=== PATIENT | female | born 1960 | race African-American/Black ===

== ENCOUNTER → 2016-08-17 | Outpatient (CLI) | payer OTHER ==
[2015-11-27 14:29] VITALS: BP 141/89
[~2016-08-17] MED LIST: CYCL10TA2 PO; DULO30CA2 PO; GABA-586 PO; HYDR-2762 PO; METH4TAB2 PO; MULT-208 PO; NAPR375T3 PO
--- NOTE | 2016-08-18 08:18 | PAIN ---
DATE OF SERVICE: 08/17/2016 INITIAL CONSULTATION FOR PAIN CLINIC CHIEF COMPLAINT: Neck and left upper extremity pain. HISTORY OF PRESENT ILLNESS: This is a 56-year-old female who presents with a history of pain since the middle of May for about 3 months, increasing without any specific injury or accident that she is aware of, but came on suddenly with pain in the base of the neck, left arm, left shoulder, anterior biceps, anterior forearm into the hand with tingling, numbness in the hand and weakness in the left arm as well, the patient reports also in the back of the shoulder on the left side into the elbow and again in the posterior aspect of the hand. The patient reports it is constant, sharp, throbbing with tingling and numbness with radiation, burning into the left hand with some difficulty with holding items recently over the past month or so. The patient did have an MRI scan of the cervical spine showing C4-C5 moderate-sized broad-based left-sided subligamentous disk protrusion with the apex located just to the left of midline abutting the cervical spinal cord and slightly displacing it. The patient reports she has been doing some exercises at home on her own, stretching of her neck and shoulder, trying to keep the pain down to a minimum, but has not been significantly helpful. She has had no formal physical therapy, but is doing the exercises on her own as well as some resistive training with light weights about 2 pounds. Again, this is becoming more and more difficult with the left arm as it is becoming more and more painful and feels weak even with some cramping in the biceps and triceps with exercise. The patient has tried hydrocodone as well as Naprosyn, gabapentin, which has not been helping significantly with the pain. The patient reports her disability rating from 0-10, 10 being the worst, is a 9 with family and home responsibilities, 8 with self-care and life support activities, 10 with recreation, sexual behavior, occupation and social activity. PAST MEDICAL HISTORY: Significant for cigarette smoking 1 pack a day for 40 years, arthritis. PREVIOUS SURGERY: Included hysterectomy in 1987. CURRENT MEDICATIONS: Include gabapentin, multivitamins, Naprosyn, Cymbalta and hydrocodone. ALLERGIES: THE PATIENT IS ALLERGIC TO PAXIL. FAMILY HISTORY: Significant for high blood pressure, diabetes and cancers. 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 REVIEW OF SYSTEMS: Positive for those items mentioned in the history of present illness. All systems reviewed and otherwise negative. It is complete, full and well documented on the patient's chart. PHYSICAL EXAMINATION: VITAL SIGNS: The patient's blood pressure is 114/81, pulse 75, respirations 18, temperature is 98.6 degrees Fahrenheit, height is 5 feet 4 inches, weight is 180 pounds. GENERAL: The patient is awake, alert, oriented, appropriate, has a very pleasant demeanor. HEENT: Shows normocephalic, atraumatic. Extraocular movements are intact and symmetrical. Oral cavity shows mucous membranes moist and pink. Dentition is intact. NECK: Shows anterior throat supple without palpable lymphadenopathy noted. Swallow reflex is symmetrical. CHEST: Shows normal on inspection. Breath sounds are clear to auscultation bilaterally. HEART: Shows S1 and S2 clear. ABDOMEN: Soft, nontender, nondistended. No palpable organomegaly is noted. No rebound or guarding demonstrated. BACK: Shows spine grossly in the midline, normal-appearing cervical lordotic curvature, thoracic kyphotic curvature and lumbar lordotic curvature. No previous bruises, lesions, rashes or scars are noted throughout. MUSCULOSKELETAL: With examination of the patient's neck, the posterior cervical musculature shows symmetrical on inspection, with palpation shows some moderate tenderness with palpation, more on the left than the right in the inferior aspect of the cervical paraspinous muscles as well as the superior, medial and lateral trapezius. Right side shows some tenderness as well in the inferior cervical paraspinous muscles, but not as much in the trapezius and appears roughly symmetrical, no evidence of atrophy, hypertrophy, no radiation of pain, no trigger points. The patient shows good rotational motion of the cervical spine laterally greater than 45 degrees, closer to 90 degrees as well as full extension and full forward flexion, was somewhat guarded with extension, but not with forward flexion, but no significant increase in pain reported with these maneuvers. EXTREMITIES: The patient's upper extremities show deep tendon reflexes 2+ in the biceps and triceps tendons. Motor exam is approximately 4 on a scale of 5 with left dental equipment mechanic strength, biceps and triceps flexion and 5/5 on the right. Peripheral pulses are 2+ in the radial distribution. No peripheral edema is noted. No clubbing, no cyanosis ____. Upper extremities are warm and dry to touch, equal in color and appearance. Shoulder shrug is strong and intact without loss of strength on resistance, but pain reported in the left shoulder with resistance, abduction at 90 degrees and intact without loss of strength on resistance, but again, pain reported with resistance as well. IMPRESSION: 1. This is a 56-year-old female with approximate 3-month history of increasing pain, base of the neck, left upper extremity in a radicular fashion to the left arm and hand with numbness, tingling and increased weakness. 2. MRI scan, cervical spine as noted. 3. History of arthritis. 4. Cigarette smoking. PLAN: Options were discussed with the patient including conservative medical management, physical therapy, interventional techniques and she would like to pursue interventional techniques since she is doing exercises on her own without significant improvement. We discussed cervical epidural steroid injection using description as well as anatomical models to describe the procedure. The patient will wait for preauthorization with her insurance provider and we will have her return for cervical epidural steroid injection at that time, try Medrol Dosepak in the meantime. The patient was given instructions as well as side effects to be aware of with the medication. Follow up as scheduled. PEG SANTANA MD DR: FORREST/felipe JOB#: [id number] / [id number] DAVID Saucedo
== END | disposition home or self-care (01) ==
LOC: PNCL 09:27
PROVIDERS: ATTEND Anesthesiology
DX: M54.2 Cervicalgia (principal); M79.602 Pain in left arm
CPT/HCPCS: 99214

== ENCOUNTER → 2016-08-29 | Outpatient (CLI) | payer OTHER ==
[2015-11-27 14:29] VITALS: BP 141/89
[~2016-08-29] MED LIST changes: +BUPIVACAINE MPF 0.25% 10 ML VIAL. ONE; +IOHEXOL 180 MG/ML 10 ML VIAL. ONE; +methylPREDNISolone ACETATE 40 MG/ML VIAL. ONE; +methylPREDNISolone ACETATE 80 MG/ML VIAL. ONE
--- NOTE | 2016-08-30 01:56 | PAIN ---
DATE OF SERVICE: 08/29/2016 PROGRESS NOTE FOR PAIN CLINIC DIAGNOSES: Cervical radiculopathy with cervical degenerative disk disease and cervical herniated disk. HISTORY OF PRESENT ILLNESS: The patient is a 56-year-old female who returns for followup status post preauthorization and initial evaluation with complaints of pain in the base of the neck and left upper extremity. The patient reports the Medrol Rolf did not help decrease the pain, still has some aching, sharp tight dull and shooting pain, stabbing, tingling, burning as well as severe and constant pain in the left arm and shoulder as well as the base of the neck. The patient reports anywhere from 9-10 on a scale of 10. Reports no new motor or sensory deficits. Still has difficulty sleeping at night, but not as bad as it was. The patient reports no new motor or sensory deficits, no new complaints, still some significant numbness and weakness in the left arm as previously. PHYSICAL EXAMINATION: VITAL SIGNS: Today, the patient's blood pressure is 114/75, pulse 83, respirations are 18, temperature 98.2 degrees Fahrenheit, height is 5 feet 4 inches, weight 181 pounds. GENERAL: The patient is awake, alert, oriented, appropriate, very pleasant demeanor. HEENT: Shows normocephalic, atraumatic. Extraocular movements are intact and symmetrical. Oral cavity, mucous membranes moist and pink. Dentition is intact. NECK: Shows anterior throat supple without palpable lymphadenopathy noted. Swallow reflex is symmetrical. CHEST: Shows normal on inspection. Breath sounds clear to auscultation bilaterally. HEART: Shows S1 and S2 clear. ABDOMEN: Soft, nontender, nondistended. No palpable organomegaly, no rebound or guarding demonstrated. BACK: The patient's back shows spine grossly midline. Neck shows posterior cervical musculature with some moderate tenderness with palpation bilaterally in the paraspinous musculature. The patient shows no difficulty with extension or forward flexion. Right and left lateral rotation are somewhat more painful to the left greater than 45 degrees, but not to the right. Upper extremity showed deep tendon reflexes at 2+ in the biceps and triceps tendons. Motor exam is approximately 4 on a scale of 5 with left biceps and triceps and teacher hearing impaired strength and 5/5 on the right. Options were discussed with the patient. The patient's old chart was reviewed as her current medication regimen updated. Current review of systems updated today as well. We will proceed with a cervical epidural steroid injection today with fluoroscopic guidance. Risks were again discussed including, but not limited to bleeding, infection, possibility of epidural hematoma, subsequent neurologic compromise, dural puncture, headaches, spinal cord and/or nerve damage, side effects of steroid medication and poor results regarding pain control. The patient understands and wishes to proceed. The patient will return to clinic in approximately 2 weeks for followup, was counseled on return appointment, activity level and side effects to be aware of. DIAGNOSES: Cervical radiculopathy with cervical degenerative disk disease, cervical herniated disk. PROCEDURE: Cervical epidural steroid injection in translaminar approach at the C6-C7 level using C-arm fluoroscopic guidance under sterile prep and drape using local anesthetic. MEDICATION INJECTED: A 120 mg Depo-Medrol with 5 mL preservative-free normal saline and 2 mL of Isovue for contrast. CONDITION AT DISCHARGE: Stable. The patient tolerated the procedure well, had no complications. PEG SANTANA MD DR: FORREST/felipe JOB#: [id number] / [id number]
== END | disposition home or self-care (01) ==
LOC: PNCL 09:51
PROVIDERS: ATTEND Anesthesiology
DX: M50.123 Cervical disc disorder at C6-C7 level with radiculopathy (principal)
CPT/HCPCS: 62321; J1030; J1040

== ENCOUNTER → 2016-09-13 | Outpatient (CLI) | payer OTHER ==
[2015-11-27 14:29] VITALS: BP 141/89
[~2016-09-13] MED LIST changes: -BUPIVACAINE MPF 0.25% 10 ML VIAL. ONE; -IOHEXOL 180 MG/ML 10 ML VIAL. ONE; -methylPREDNISolone ACETATE 40 MG/ML VIAL. ONE; -methylPREDNISolone ACETATE 80 MG/ML VIAL. ONE
--- NOTE | 2016-09-13 23:52 | PAIN ---
DATE OF SERVICE: 09/13/2016 PROGRESS NOTE FOR PAIN CLINIC DIAGNOSES: Cervical radiculopathy with cervical degenerative disk disease and cervical herniated disk. HISTORY OF PRESENT ILLNESS: The patient is a 56-year-old female, who returns for followup status post cervical epidural steroid injection x 1. The patient reports initially about 50-60% improvement over the first two weeks, but now the pain is returning over the last few days essentially at the baseline at the base of the neck and left shoulder, left upper extremity, left arm with tingling and numbness in the left hand. She has been dropping items with her left hand, with repetitive motions home, rates her pain from 8-10 on a scale of 10, now a sharp shooting, tingling, burning and constant, becoming more severe pain in the left arm and hand with some occasional tingling in the right hand, but mostly on the left side. The patient has been doing some stretching exercises with her neck and shoulders, but this does not seem to be helping the pain significantly. The patient reports no new motor or sensory deficits, but still significant pain is noted radiating to the left upper extremity with some numbness in the left face noted as well. PHYSICAL EXAMINATION: VITAL SIGNS: The patient's blood pressure 110/66, pulse 79, respirations are 18, temperature 98.5 degrees Fahrenheit, height is 5 feet 4 inches, and weight is 182 pounds. GENERAL: The patient is awake, alert, oriented, appropriate, very pleasant demeanor. HEENT: Head shows normocephalic, atraumatic. Extraocular movements are intact, symmetrical. Oral cavity, mucous membranes are moist and pink. Dentition is intact. NECK: Shows anterior throat supple without palpable lymphadenopathy noted. Swallow reflex is symmetrical. CHEST: Shows normal on inspection. Breath sounds clear to auscultation bilaterally. HEART: Shows S1 and S2 clear. ABDOMEN: Soft, nontender, nondistended. No palpable organomegaly noted. No rebound or guarding demonstrated. BACK: Shows spine grossly in the midline. Cervical paraspinous musculature shows some moderate tenderness to palpation in the inferior aspect of the cervical paraspinous muscles as well as the left superior medial and lateral trapezius, but symmetrical without evidence of atrophy, hypertrophy and some moderate tenderness with palpation, but no trigger points or radiation of pain. NECK: Shows full rotational motion of cervical spine with some tenderness noted with left lateral rotation past 45 degrees as well as extension, but not with forward flexion. EXTREMITIES: Upper extremity showed deep tendon reflexes at 2+ in the biceps and triceps tendons. Motor exam is approximately 4 on a scale of 5 with left mason liner strength and 5/5 on the right. PLAN: Options were discussed with the patient. The patient's old chart was reviewed as her current medication regimen updated. Current review of systems updated today as well and we will preauthorize the patient for a second cervical epidural steroid injection. She did well initially, but now the pain significantly returning to the left upper extremity in a radicular fashion. The patient was encouraged to continue doing her strengthening and stretching exercises as tolerated. We will follow up as scheduled. PEG SANTANA MD DR: FORREST/felipe JOB#: [id number] / [id number] DAVID Saucedo
== END | disposition home or self-care (01) ==
LOC: PNCL 10:11
PROVIDERS: ATTEND Anesthesiology
DX: M50.10 Cervical disc disorder with radiculopathy, unspecified cervical region (principal); M50.20 Other cervical disc displacement, unspecified cervical region
CPT/HCPCS: 99212

== ENCOUNTER → 2016-10-08 | Outpatient (CLI) | payer OTHER ==
[2015-11-27 14:29] VITALS: BP 141/89
[~2016-10-08] MED LIST changes: +IOHEXOL 180 MG/ML 10 ML VIAL. ONE; +methylPREDNISolone ACETATE 40 MG/ML VIAL. ONE; +methylPREDNISolone ACETATE 80 MG/ML VIAL. ONE
--- NOTE | 2016-10-08 13:28 | PAIN ---
DATE OF SERVICE: 10/08/2016 PROGRESS NOTE FOR PAIN CLINIC DIAGNOSES: Cervical radiculopathy with cervical degenerative disk disease and cervical herniated disk. HISTORY OF PRESENT ILLNESS: This is a 56-year-old female, who returns for followup status post cervical epidural steroid injection x 1. The patient reports about a 20% improvement, but only limited in her pain reduction in the base of the neck, shoulders, right upper extremity, is now ____ up to the left upper extremity with some significant pain, numbness and tingling, rated as 10 on a scale of 10 at all times. Describes as aching, sharp, shooting, stabbing, burning and tingling with constant severe pain in the back and neck, shoulders and between the shoulder blades, more on the right than the left with increased fatigability in the right upper extremity as well as the left, but more noticeable on the right over the last few weeks. The patient reports no new motor or sensory deficits, but still significant pain and fatigue in the upper extremities noted. PHYSICAL EXAMINATION: VITAL SIGNS: Today, the patient's blood pressure is 126/80, pulse is 80, respirations 18, temperature 98.3 degrees Fahrenheit, height is 5 feet 4 inches, weight is 177 pounds. GENERAL: The patient is awake, alert, oriented, appropriate, very pleasant demeanor. HEENT: Head shows normocephalic, atraumatic. Extraocular movements are intact and symmetrical. Oral cavity, mucous membranes are moist and pink. Dentition is intact. NECK: Shows anterior throat supple without palpable lymphadenopathy noted. Swallow reflex is symmetrical. CHEST: Shows normal on inspection. Breath sounds clear to auscultation bilaterally. HEART: Shows S1 and S2 clear. No murmurs auscultated. ABDOMEN: Soft, nontender, nondistended. No palpable organomegaly. No rebound or guarding demonstrated. EXTREMITIES: Upper extremities show deep tendon reflexes at 2+ in the bicep and tricep tendons. Motor exam is approximately 4 on a scale of 5 with biceps and triceps as well as crocheter hand strength and is symmetrical. Right side is now less strong on levels on previous exam at the 4 on a 5 level with crocheter hand strength, biceps and triceps flexion as ____. Peripheral pulses are 2+ radial distribution. No peripheral edema is noted. No clubbing, no cyanosis. Options were discussed with the patient. The patient's old chart was reviewed as her current medication regimen updated. Current review of systems updated today as well. We will proceed with a second cervical epidural steroid injection today with fluoroscopic guidance. Risks were then discussed including, but not limited to bleeding, infection, possibility of epidural hematoma, subsequent neurologic compromise, dural puncture, headaches, spinal cord and/or nerve damage, side effects of steroid medication and poor results regarding pain control. The patient understands and wishes to proceed. The patient will return to clinic in approximately 2 weeks for followup, was counseled on return appointment, activity level and side effects to be aware of. DIAGNOSES: Cervical radiculopathy with cervical herniated disk and cervical degenerative disk disease. PROCEDURE: Cervical epidural steroid injection in translaminar approach at C6-C7 level using C-arm fluoroscopic guidance, a sterile prep and drape using local anesthetic. MEDICATIONS INJECTED: A total of 120 mg of Depo-Medrol plus 5 mL of preservative-free normal saline and 2 mL of Isovue for contrast. CONDITION AT DISCHARGE: Stable. The patient tolerated the procedure well, had no complications. PEG SANTANA MD DR: FORREST/felipe JOB#: [id number] / [id number]
== END | disposition home or self-care (01) ==
LOC: PNCL 10:33
PROVIDERS: ATTEND Anesthesiology
DX: M50.123 Cervical disc disorder at C6-C7 level with radiculopathy (principal)
CPT/HCPCS: 62321; J1030; J1040

== ENCOUNTER 2017-12-26 17:59 | Emergency (ER) | payer OTHER ==
[~2017-12-26] VITALS: Ht 162.6 cm; Wt 85.7 kg
[~2017-12-26 17:59] MED LIST changes: -IOHEXOL 180 MG/ML 10 ML VIAL. ONE; +NAPR-695 PO; -NAPR375T3 PO; -methylPREDNISolone ACETATE 40 MG/ML VIAL. ONE; -methylPREDNISolone ACETATE 80 MG/ML VIAL. ONE
[2017-12-26] MEDS ORDERED: IV NORMAL SALINE 1000ML BAG 1,000 ML IV SCH (18:23)
--- NOTE | 2017-12-26 18:28 | PHYS DOC ---
Past Medical History Past Medical History: Cancer, Fibromyalgia, Sinusitis, Other Additional Past Medical Histor: nerve pain Past Surgical History: Hysterectomy, Other Additional Past Surgical Histo: cervical cancer Additional Information: 1 PPD Alcohol Use: None Drug Use: None Adult General Chief Complaint Chief Complaint: ABDOMINAL PAIN HPI HPI Patient is a 57-year-old female who presents with complaint of upper abdominal pain that has been present for the last 3-4 days. She indicates that she has had nausea with vomiting as well as diarrhea since onset. She states that she has had intermittent problems with the upper abdominal pain over the last year and the last few days have been her latest exacerbation. Patient indicates that she still has her gallbladder. The a 10 out of 10. She states that she is not able to identify anything that makes her pain worse. She also indicates that nothing improves her pain. She denies any chest pain or shortness of breath. She also denies any urinary discomfort or fever. She indicates that she has been having some pain in her lower back in conjunction with the abdominal pain. She is not sure whether this is pain that is radiating from the abdomen or not. Review of Systems Review of Systems Constitutional: Denies fever or chills [] Respiratory: Denies cough or shortness of breath [] Cardiovascular: Denies chest pain[] GI: Complains of abdominal pain with nausea, vomiting and diarrhea. [] : Denies dysuria or hematuria [] Musculoskeletal: Admits to lower back pain[] All other systems were reviewed and found to be within normal limits, except as documented in this note. Current Medications Current Medications Current Medications Medications (Trade) Dose Ordered Sig/Blake Start Time Stop Time Status Last Admin Dose Admin Fentanyl Citrate (Fentanyl 2ml Vial) 25 mcg 1X ONCE 12/26/17 18:30 12/26/17 18:31 DC 12/26/17 18:44 25 MCG Info (CONTRAST GIVEN -- Rx MONITORING) 1 each PRN DAILY PRN 12/26/17 19:30 12/28/17 19:29 Iohexol (Omnipaque 300 Mg/ml) 75 ml 1X ONCE 12/26/17 19:30 12/26/17 19:31 DC 12/26/17 19:33 75 ML Ondansetron HCl (Zofran) 4 mg 1X ONCE 12/26/17 18:30 12/26/17 18:31 DC 12/26/17 18:43 4 MG Sodium Chloride 1,000 ml @ 1,000 mls/hr Q1H 12/26/17 18:23 12/26/17 19:22 DC 12/26/17 18:43 1,000 MLS/HR Allergies Allergies Allergies Coded Allergies Type Severity Reaction Last Updated Verified paroxetine Allergy Severe insomnia 11/27/15 Yes Physical Exam Physical Exam Constitutional: Well developed, well nourished, no acute distress, non-toxic appearance. [] HENT: Normocephalic, atraumatic, bilateral external ears normal, oropharynx moist, no oral exudates, nose normal. [] Eyes: PERRLA, EOMI, conjunctiva normal, no discharge. [] Neck: Normal range of motion, no tenderness, supple, no stridor. [] Cardiovascular:Heart rate regular rhythm, no murmur [] Lungs & Thorax: Bilateral breath sounds clear to auscultation [] Abdomen: Bowel sounds normal, soft, with mild epigastric and right upper quadrant tenderness. [] Skin: Warm, dry, no erythema, no rash. [] Extremities: No tenderness, no cyanosis, no clubbing, ROM intact, no edema. [] Neurologic: Alert and oriented X 3, normal motor function, normal sensory function, no focal deficits noted. [] Current Patient Data Vital Signs Vital Signs Date Time Temp Pulse Resp B/P (MAP) Pulse Ox O2 Delivery O2 Flow Rate FiO2 12/26/17 18:44 16 Room Air 12/26/17 18:12 99.1 70 200/108 (138) 99 99.1 Lab Values Laboratory Tests Test 12/26/17 18:26 12/26/17 19:50 White Blood Count 10.9 x10^3/uL (4.0-11.0) Red Blood Count 4.01 x10^6/uL (3.50-5.40) Hemoglobin 13.3 g/dL (12.0-15.5) Hematocrit 38.4 % (36.0-47.0) Mean Corpuscular Volume 96 fL (79-100) Mean Corpuscular Hemoglobin 33 pg (25-35) Mean Corpuscular Hemoglobin Concent 35 g/dL (31-37) Red Cell Distribution Width 14.0 % (11.5-14.5) Platelet Count 206 x10^3/uL (140-400) Neutrophils (%) (Auto) 60 % (31-73) Lymphocytes (%) (Auto) 30 % (24-48) Monocytes (%) (Auto) 7 % (0-9) Eosinophils (%) (Auto) 2 % (0-3) Basophils (%) (Auto) 1 % (0-3) Neutrophils # (Auto) 6.6 x10^3uL (1.8-7.7) Lymphocytes # (Auto) 3.3 x10^3/uL (1.0-4.8) Monocytes # (Auto) 0.8 x10^3/uL (0.0-1.1) Eosinophils # (Auto) 0.2 x10^3/uL (0.0-0.7) Basophils # (Auto) 0.1 x10^3/uL (0.0-0.2) Sodium Level 142 mmol/L (136-145) Potassium Level 4.2 mmol/L (3.5-5.1) Chloride Level 107 mmol/L (98-107) Carbon Dioxide Level 25 mmol/L (21-32) Anion Gap 10 (6-14) Blood Urea Nitrogen 18 mg/dL (7-20) Creatinine 0.7 mg/dL (0.6-1.0) Estimated GFR (Cockcroft-Gault) 104.4 BUN/Creatinine Ratio 26 (6-20) H Glucose Level 104 mg/dL (70-99) H Calcium Level 8.7 mg/dL (8.5-10.1) Total Bilirubin 0.2 mg/dL (0.2-1.0) Aspartate Amino Transferase (AST) 21 U/L (15-37) Alanine Aminotransferase (ALT) 30 U/L (14-59) Alkaline Phosphatase 109 U/L (46-116) Troponin I Quantitative < 0.017 ng/mL (0.000-0.055) Total Protein 7.2 g/dL (6.4-8.2) Albumin 3.7 g/dL (3.4-5.0) Albumin/Globulin Ratio 1.1 (1.0-1.7) Lipase 106 U/L (73-393) Urine Collection Type Unknown Urine Color Yellow Urine Clarity Clear Urine pH 6.0 Urine Specific [place] >=1.030 Urine Protein Negative mg/dL (NEG-TRACE) Urine Glucose (UA) Negative mg/dL (NEG) Urine Ketones (Stick) Negative mg/dL (NEG) Urine Blood Negative (NEG) Urine Nitrite Negative (NEG) Urine Bilirubin Negative (NEG) Urine Urobilinogen Dipstick 0.2 mg/dL (0.2 mg/dL) Urine Leukocyte Esterase Negative (NEG) Urine RBC 0 /HPF (0-2) Urine WBC Occ /HPF (0-4) Urine Squamous Epithelial Cells Mod /LPF Urine Bacteria Few /HPF (0-FEW) Urine Mucus Slight /LPF Urine Yeast Present /HPF Laboratory Tests 12/26/17 18:26 Laboratory Tests 12/26/17 18:26 EKG EKG [] Interpretation Time: EKG demonstrates a normal sinus rhythm with rate of 69. No ST segment abnormalities noted. Radiology/Procedures Radiology/Procedures [] Impressions: CT of the abdomen and pelvis demonstrates no acute process. Course & Med Decision Making Course & Med Decision Making Pertinent Labs and Imaging studies reviewed. (See chart for details) [] Dragon Disclaimer Dragon Disclaimer This electronic medical record was generated, in whole or in part, using a voice recognition dictation system. Departure Departure Impression: Primary Impression: Gastroenteritis Additional Impression: Upper abdominal pain Disposition: HOME, SELF-CARE Condition: STABLE Referrals: DAVID GUALLPA (PCP) Patient Instructions: Abdominal Pain (Nonspecific), Viral Gastroenteritis Additional Instructions: Take prescribed medications as directed and follow-up with your primary care provider in the next few days. Scripts Diphenoxylate Hcl/Atropine (LOMOTIL TABLET) 1 Each Tablet 1 TAB PO TID PRN for DIARRHEA, #15 TAB Prov: CARLOS SANTIAGO Jr. DO 12/26/17 Ondansetron Hcl (ZOFRAN) 4 Mg Tablet 4 MG PO PRN TID PRN for NAUSEA/VOMITING, #15 nausea/vomiting Prov: CARLOS SANTIAGO Jr. DO 12/26/17 Problem Qualifiers CARLOS SANTIAGO Jr. DO Dec 26, 2017 18:28
[2017-12-26] MEDS ORDERED: ONDANSETRON PF 4 MG/2 ML VIAL. IV ONE (18:30)
[2017-12-26] MEDS ORDERED: fentaNYL PF VIAL 100 MCG/2 ML VIAL IV ONE (18:30)
[2017-12-26 18:39] LABS: BASO # 0.1 x10^3/uL (0.0-0.2); BASO % 1 % (0-3); EOS # 0.2 x10^3/uL (0.0-0.7); EOS % 2 % (0-3); HEMATOCRIT 38.4 % (36.0-47.0); HEMOGLOBIN 13.3 g/dL (12.0-15.5); LYMPH # 3.3 x10^3/uL (1.0-4.8); LYMPH % 30 % (24-48); MEAN CORPUSCULAR HEMOGLOBIN 33 pg (25-35); MEAN CORPUSCULAR HGB CONC 35 g/dL (31-37); MEAN CORPUSCULAR VOLUME 96 fL (79-100); MONO # 0.8 x10^3/uL (0.0-1.1); MONO % 7 % (0-9); NEUT # 6.6 x10^3uL (1.8-7.7); NEUT % 60 % (31-73); PLATELET COUNT 206 x10^3/uL (140-400); RED BLOOD COUNT 4.01 x10^6/uL (3.50-5.40); WHITE BLOOD COUNT 10.9 x10^3/uL (4.0-11.0)
[2017-12-26 18:50] LABS: CALCIUM 8.7 mg/dL (8.5-10.1); CREATININE 0.7 mg/dL (0.6-1.0); GFR 104.4; POTASSIUM 4.2 mmol/L (3.5-5.1)
[2017-12-26 18:55] LABS: ALBUMIN 3.7 g/dL (3.4-5.0); ALBUMIN/GLOBULIN RATIO 1.1 (1.0-1.7); TOTAL BILIRUBIN 0.2 mg/dL (0.2-1.0); TOTAL PROTEIN 7.2 g/dL (6.4-8.2)
[2017-12-26] MEDS ORDERED: IOHEXOL 300 MG/ML 100ML VIAL. IV ONE (19:30)
[2017-12-26] MEDS ORDERED: CONTRAST GIVEN. MC PRN (19:30)
--- NOTE | 2017-12-26 19:50 | RAD ---
PQRS Compliance statement: One or more of the following individualized dose reduction techniques were utilized for this examination: 1. Automated exposure control. 2. Adjustment of the mA and/or kV according to patient size. 3. Use of iterative reconstruction technique. Indication:upper abd pain x 1 year, constant x 3 days, uvuk570 75ml, no priors TECHNIQUE: CT abdomen and pelvis with IV contrast with multiplanar reformats. COMPARISON: None FINDINGS: Heart is normal in size. No pericardial or pleural effusion. Clear lung bases. Liver, spleen, gallbladder, pancreas, adrenals and kidneys are within normal limits. No retroperitoneal or pelvic adenopathy. No bowel obstruction. Normal appendix. Status post hysterectomy. Urinary bladder within normal limits. No suspicious bony lesion. IMPRESSION: No acute findings. Electronically signed by: Isaac Rushing DO (12/26/2017 7:48 PM) [facility]
[2017-12-26 20:00] LABS: BILIRUBIN,URINE NEGATIVE (NEG); CLARITY,URINE CLEAR; COLOR,URINE YELLOW; NITRITE,URINE NEGATIVE (NEG); PROTEIN,URINE NEGATIVE (NEG-TRACE); UROBILINOGEN,URINE 0.2 mg/dL (0.2 mg/dL)
[2017-12-26 20:08] LABS: BACTERIA,URINE FEW /HPF (0-FEW); RBC,URINE 0 /HPF (0-2); SQUAMOUS EPITHELIAL CELL,UR MOD /LPF; WBC,URINE OCC /HPF (0-4); YEAST,URINE PRESENT /HPF
[2017-12-26] MEDS ORDERED: DIPH1TAB PO (20:30)
[2017-12-26] MEDS ORDERED: ONDA4TAB7 PO (20:30)
[2017-12-26 20:50] VITALS: BP 179/90
--- NOTE | 2017-12-27 01:40 | EKG ---
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
== END 2017-12-26 20:51 | disposition home or self-care (01) ==
LOC: ER 17:59
DX: K52.9 Noninfective gastroenteritis and colitis, unspecified (principal); M54.5 Low back pain; F17.200 Nicotine dependence, unspecified, uncomplicated; Z90.710 Acquired absence of both cervix and uterus; Z88.8 Allergy status to other drugs, medicaments and biological substances
CPT/HCPCS: 36415; 74177; 80053; 81001; 83690; 84484; 85025; 93005; 96361; 96374; 96375; 99285; J2405; J3010; J7030; Q9967

== ENCOUNTER → 2018-04-21 | Outpatient (CLI) | payer OTHER ==
[2018-03-14 10:39] VITALS: BP 133/83
[~2018-04-21] MED LIST changes: +ASPI-612 PO; +ATOR40TA59 PO; +AZIT250T6 PO; +CLOP75TA PO; +DIPH1TAB PO; +DULO60CA6 PO; -GABA-586 PO; +GABA300C18 PO; -HYDR-2762 PO; +HYDR-2765 PO; +LISI-338 PO; +METO-239 PO; +MOME13HF2 IH; +ONDA4TAB10 SL; +ONDA4TAB7 PO; +OXYC1TAB22 PO; +PREG50CA PO; +REGADENOSON 0.4 MG/5 ML DISP.SYRIN. IV ONE; +ROPI0.5T PO
--- NOTE | 2018-04-21 13:32 | RAD ---
MR#: [id number] Date of Study: 04/21/2018 Ordering Physician: MANUEL LOYOLA, Referring Physician: STEPHANIE GARCIA Tech: STEPHANIE TangMercedes, ARRT (R) (N)ZEINAB Mauricio APPROVED REPORT Test Type: Pharmacological Stress Nurse/Tech: Tristan Bonilla RN Test Indications: dyspnea on exertion Cardiac History: Cath 2018, two blockages, no intervetion, smoker Medications: See Electronic Medical Record Medical History: See Electronic Medical Record Resting ECG: SR inverted T wave Resting Heart Rate: 60 bpm Resting Blood Pressure: 146/86mmHg Pretest Chest Pain: None Nurse/Tech Notes Pt fisrt attempted a treadmill test but was unable to reach target heart rate due to hip and leg pain . Consent: The procedure was explained to the patient in lay terms. Informed consent was witnessed. James eout was entered into [facility]. History and Stress Test performed by Tristan Bonilla RN Pharm. Details Pharmacologic stress testing was performed using 0.4mg per 5ml of regadenoson given intravenously ove r 7-10 seconds. Stress Symptoms dyspnea, no chest pain POST EXERCISE Reason for Termination: Infusion complete Max HR: 102 bpm Max Blood Pressure: 128/87mmHg Blood Pressure response to exercise: Normal blood pressure response during stress. Heart Rate response to exercise: normal response Chest Pain: No. Arrhythmia: No. ST Change: No. INTERPRETATION Stress EKG Conclusion: The resting EKG shows a sinus rhythm and T-wave inversion in the anterior late ral and inferior leads. The stress EKG shows no significant changes from baseline. Abnormal baseline EKG but no EKG evidence of stressed induced ischemia. Imaging Protocol IMAGE PROTOCOL: Rest Tc-99m/stress Tc-99m 1 day Rest: Stress: Viability: Radiopharm.Tc99m [id number] Sestamibi Dose12.4mCi 32mCi Duration 17min. 13min. Img Date 04/21/2018 04/21/2018 Inj-Img Wley10lez. 60min. Rest Admin Site:IV - Right AntecubitalAdministrator:ZEINAB Mauricio Stress Admin Site: IV - Right AntecubitalAdministrator: NELLA Tang, ARRT (R)(N) STRESS DATA End Diast. Vol.93.0mlAv. Heart Rate72.0bpm LVEDV index BSA50.0mlCardiac Output0.0L/min End Syst. Vol.41.0mlCO Index BSA0.0L/min LVESV index BSA22.0mlMyocardial Meke235.0g Eject. Giyxyadh11.0% Stress Scores Regional WT0.00Summed WT7.00 Regional WM0.00Summed WM8.00 LV Perfusion The stress scans show an anterior septal defect. The rest scans show a small anterior defect. Nuclear imaging shows reversible ischemia in the anterior septal wall. Part of this region is suggest oly of an old infarct. Wall Motion Left ventricular systolic function is normal with an ejection fraction of 56%. LV Perf. Quant 17 Seg. SSS8.00 17 Seg. SRS6.00 17 Seg. SDS3.00 Stress Defect Extent (% LAD)25.60Rest Defect Extent (% LAD)5.60Rev. Defect Extent (% LAD)5.60 Stress Defect Extent (% LCX) 22.50Rest Defect Extent (% LCX)22.50Rev. Defect Extent (% LCX)0.00 Stress Defect Extent (% RCA)0.00Rest Defect Extent (% RCA)0.00Rev. Defect Extent (% RCA)0.00 Stress Defect Extent (% MANAS)15.20Rest Defect Extent (% MANAS)5.90Rev. Defect Extent (% MANAS)3.00 Conclusion 1. Baseline abnormal EKG with T-wave inversion but no EKG evidence of stressed induced ischemia. 2. Nuclear imaging shows reversible ischemia in the in the anteroseptal wall with a small region of a probable old infarct. 3. Left ventricular systolic function is intact with an ejection fraction of 56%. 4. Moderately high risk Lexiscan nuclear stress test with reversible ischemia in the anterior septal wall. Signed by : Connor Gant MD Electronically Approved : 04/21/2018 13:30:53
== END | disposition home or self-care (01) ==
LOC: NM 08:42
PROVIDERS: ATTEND Internal Medicine Cardiovascular Disease
DX: R94.31 Abnormal electrocardiogram [ECG] [EKG] (principal)
CPT/HCPCS: 78452; 93017; 96374; 96375; 96376; A9500; J2785

== ENCOUNTER → 2018-05-07 | Outpatient (CLI) | payer OTHER ==
[2018-03-14 10:39] VITALS: BP 133/83
[~2018-05-07] MED LIST changes: -REGADENOSON 0.4 MG/5 ML DISP.SYRIN. IV ONE
--- NOTE | 2018-05-08 10:23 | RAD ---
Bilateral lower extremity arterial ultrasound History: Peripheral arterial disease Findings: Multiple grayscale, color, and duplex spectral analysis sonographic images were acquired of the lower extremity arteries bilaterally. No significant stenosis is demonstrated on color images. There are triphasic waveforms bilaterally to level of the proximal posterior tibial arteries, variably biphasic and triphasic waveforms of the calf arteries bilaterally. Velocities in cm/sec: RIGHT Common femoral artery 153 Profunda femoris artery 70 Proximal SFA 117 Mid SFA 103 Distal SFA 101 Popliteal artery 95 Anterior tibial artery 102 Dorsalis pedis artery 60 Posterior tibial artery 75 proximally and 111 distally Peroneal artery 95 LEFT: Common femoral artery 143 Profunda femoris artery 48 Proximal SFA 129 Mid SFA 116 Distal SFA 68 Popliteal artery 91 Anterior tibial artery 78 Dorsalis pedis artery 57 Posterior tibial artery 92 proximally and 75 distally Peroneal artery 67 Impression: 1. No significant focal stenosis or vessel occlusion is demonstrated. Electronically signed by: Mitch Molina MD (05/08/2018 10:19 AM) [id number]
== END | disposition home or self-care (01) ==
LOC: US 12:40
PROVIDERS: ATTEND Family Medicine
DX: I73.9 Peripheral vascular disease, unspecified (principal)
CPT/HCPCS: 93925

== ENCOUNTER → 2018-08-04 | Outpatient (CLI) | payer OTHER ==
[2018-03-14 10:39] VITALS: BP 133/83
[~2018-08-04] MED LIST changes: +AMOX1TAB25 PO; +ATOR20TA PO; +ISOS30TA4 PO; +LEVO5TAB29 PO; +LORA10TA3 PO; +MELO15TA23 PO; +OXYC-411 PO; +PRAS10TA9 PO
--- NOTE | 2018-08-05 14:57 | SLEEP ---
DATE OF STUDY: 08/04/2018 HOME SLEEP STUDY ATTENDING PHYSICIAN: Manuel Rodney MD. The patient is 58 years old who weighs 178 pounds with a BMI of 30.6. The patient's [place] score was 19. The patient underwent home sleep study performed by [facility]. Total recording time was 314 minutes. During the night study, the patient had 130 obstructive apneas, no central apneas and 9 mixed apneas and 15 hypopneas. The patient's apnea hypopnea index was 29.4 per hour. Nocturnal oximetry study revealed a mean oxygen saturation of 93% with the lowest of 78%. 21 minutes were spent in oxygen saturation less than 90% and another 12 minutes with saturation less than 85%. Mean heart rate was 70 beats per minute. IMPRESSION: 1. Severe sleep apnea-hypopnea syndrome at an AHI of 29.4 per hour. 2. Nocturnal hypoxia secondary to obstructive sleep apnea. RECOMMENDATIONS: 1. The patient would benefit from in-lab CPAP titration study. 2. Once optimum CPAP pressure is achieved, then follow up in 4-6 weeks to assess compliance and to document clinical improvement. 3. Weight loss is advised. 4. Avoid SOLAR DESIGN ENGINEER depressants. 5. Caution regarding driving until symptoms of sleep apnea resolve with the use of CPAP. SHRUTHI ALANIS MD DR: RAYMUNDO/felipe JOB#: [id number] / [id number] MANUEL Bell MD
== END | disposition home or self-care (01) ==
LOC: RT 08:26
PROVIDERS: ATTEND Internal Medicine Pulmonary Disease
DX: G47.33 Obstructive sleep apnea (adult) (pediatric) (principal); R09.02 Hypoxemia
CPT/HCPCS: G0399

== ENCOUNTER 2018-09-10 01:52 | Inpatient (IN) | payer OTHER ==
[~2018-09-10] VITALS: Ht 162.6 cm; Wt 81.6 kg
[~2018-09-10 01:52] MED LIST changes: -AMOX1TAB25 PO; -ATOR20TA PO; -ISOS30TA4 PO; -LEVO5TAB29 PO; -LORA10TA3 PO; -MELO15TA23 PO; -OXYC-411 PO; -PRAS10TA9 PO
[2018-09-10] MEDS ORDERED: ASPIRIN 325 MG TABLET PO ONE (02:00)
[2018-09-10 02:12] LABS: BASO # 0.1 x10^3/uL (0.0-0.2); BASO % 1 % (0-3); EOS # 0.4 x10^3/uL (0.0-0.7); EOS % 3 % (0-3); HEMATOCRIT 38.8 % (36.0-47.0); HEMOGLOBIN 12.8 g/dL (12.0-15.5); LYMPH # 4.1 x10^3/uL (1.0-4.8); LYMPH % 35 % (24-48); MEAN CORPUSCULAR HEMOGLOBIN 32 pg (25-35); MEAN CORPUSCULAR HGB CONC 33 g/dL (31-37); MEAN CORPUSCULAR VOLUME 98 fL (79-100); MONO % 8 % (0-9); NEUT # 6.4 x10^3uL (1.8-7.7); NEUT % 53 % (31-73); PLATELET COUNT 197 x10^3/uL (140-400); RED BLOOD COUNT 3.96 x10^6/uL (3.50-5.40); RED CELL DISTRIBUTION WIDTH 13.2 % (11.5-14.5)
[2018-09-10 02:27] LABS: PROTHROMBIN TIME PATIENT 13.5 SEC (11.7-14.0)
[2018-09-10 02:30] LABS: CALCIUM 9.1 mg/dL (8.5-10.1); CREATININE 0.7 mg/dL (0.6-1.0); POTASSIUM 3.7 mmol/L (3.5-5.1)
[2018-09-10 02:36] LABS: ALBUMIN 3.8 g/dL (3.4-5.0); ALBUMIN/GLOBULIN RATIO 1.3 (1.0-1.7); MAGNESIUM 1.8 mg/dL (1.8-2.4); TOTAL BILIRUBIN 0.2 mg/dL (0.2-1.0); TOTAL PROTEIN 6.8 g/dL (6.4-8.2)
--- NOTE | 2018-09-10 03:41 | PHYS DOC ---
Past Medical History Past Medical History: Cancer, Fibromyalgia, High Cholesterol, [place], Sinusitis, Other Additional Past Medical Histor: CERVICAL CA Past Surgical History: Hysterectomy, Other Additional Past Surgical Histo: CERVICAL CA Alcohol Use: None Drug Use: None Adult General Chief Complaint Chief Complaint: CHEST PAIN-CARDIAC NATURE HPI HPI Patient is a 58 year old [f__sex] who presents with [] Review of Systems Review of Systems Constitutional: Denies fever or chills [] Eyes: Denies change in visual acuity, redness, or eye pain [] HENT: Denies nasal congestion or sore throat [] Respiratory: Denies cough or shortness of breath [] Cardiovascular: No additional information not addressed in HPI [] GI: Denies abdominal pain, nausea, vomiting, bloody stools or diarrhea [] : Denies dysuria or hematuria [] Musculoskeletal: Denies back pain or joint pain [] Integument: Denies rash or skin lesions [] Neurologic: Denies headache, focal weakness or sensory changes [] Endocrine: Denies polyuria or polydipsia [] All other systems were reviewed and found to be within normal limits, except as documented in this note. Current Medications Current Medications Current Medications Medications (Trade) Dose Ordered Sig/Blake Start Time Stop Time Status Last Admin Dose Admin Aspirin (Scar Aspirin) 325 mg 1X ONCE 09/10/18 02:00 09/10/18 02:01 DC 09/10/18 02:13 325 MG Allergies Allergies Allergies Coded Allergies Type Severity Reaction Last Updated Verified paroxetine Allergy Severe insomnia 11/27/15 Yes Physical Exam Physical Exam Constitutional: Well developed, well nourished, no acute distress, non-toxic appearance. [] HENT: Normocephalic, atraumatic, bilateral external ears normal, oropharynx moist, no oral exudates, nose normal. [] Eyes: PERRLA, EOMI, conjunctiva normal, no discharge. [] Neck: Normal range of motion, no tenderness, supple, no stridor. [] Cardiovascular:Heart rate regular rhythm, no murmur [] Lungs & Thorax: Bilateral breath sounds clear to auscultation [] Abdomen: Bowel sounds normal, soft, no tenderness, no masses, no pulsatile masses. [] Skin: Warm, dry, no erythema, no rash. [] Back: No tenderness, no CVA tenderness. [] Extremities: No tenderness, no cyanosis, no clubbing, ROM intact, no edema. [] Neurologic: Alert and oriented X 3, normal motor function, normal sensory function, no focal deficits noted. [] Psychologic: Affect normal, judgement normal, mood normal. [] Current Patient Data Vital Signs Vital Signs Date Time Temp Pulse Resp B/P (MAP) Pulse Ox O2 Delivery O2 Flow Rate FiO2 09/10/18 01:53 98.7 69 18 130/83 (99) 97 Room Air 98.7 Lab Values Laboratory Tests Test 09/10/18 02:03 White Blood Count 12.0 x10^3/uL (4.0-11.0) H Red Blood Count 3.96 x10^6/uL (3.50-5.40) Hemoglobin 12.8 g/dL (12.0-15.5) Hematocrit 38.8 % (36.0-47.0) Mean Corpuscular Volume 98 fL (79-100) Mean Corpuscular Hemoglobin 32 pg (25-35) Mean Corpuscular Hemoglobin Concent 33 g/dL (31-37) Red Cell Distribution Width 13.2 % (11.5-14.5) Platelet Count 197 x10^3/uL (140-400) Neutrophils (%) (Auto) 53 % (31-73) Lymphocytes (%) (Auto) 35 % (24-48) Monocytes (%) (Auto) 8 % (0-9) Eosinophils (%) (Auto) 3 % (0-3) Basophils (%) (Auto) 1 % (0-3) Neutrophils # (Auto) 6.4 x10^3uL (1.8-7.7) Lymphocytes # (Auto) 4.1 x10^3/uL (1.0-4.8) Monocytes # (Auto) 1.0 x10^3/uL (0.0-1.1) Eosinophils # (Auto) 0.4 x10^3/uL (0.0-0.7) Basophils # (Auto) 0.1 x10^3/uL (0.0-0.2) Prothrombin Time 13.5 SEC (11.7-14.0) Prothrombin Time INR 1.1 (0.8-1.1) Sodium Level 143 mmol/L (136-145) Potassium Level 3.7 mmol/L (3.5-5.1) Chloride Level 108 mmol/L (98-107) H Carbon Dioxide Level 26 mmol/L (21-32) Anion Gap 9 (6-14) Blood Urea Nitrogen 21 mg/dL (7-20) H Creatinine 0.7 mg/dL (0.6-1.0) Estimated GFR (Cockcroft-Gault) 104.0 BUN/Creatinine Ratio 30 (6-20) H Glucose Level 132 mg/dL (70-99) H Calcium Level 9.1 mg/dL (8.5-10.1) Magnesium Level 1.8 mg/dL (1.8-2.4) Total Bilirubin 0.2 mg/dL (0.2-1.0) Aspartate Amino Transferase (AST) 28 U/L (15-37) Alanine Aminotransferase (ALT) 31 U/L (14-59) Alkaline Phosphatase 107 U/L (46-116) Creatine Kinase 321 U/L (26-192) H Creatine Kinase MB (Mass) 1.6 ng/mL (0.0-3.6) Creatine Kinase MB Relative Index 0.5 % (0-4) Troponin I Quantitative 0.020 ng/mL (0.000-0.055) ZC-Rrx-O-Type Natriuretic Peptide 24 pg/mL (0-124) Total Protein 6.8 g/dL (6.4-8.2) Albumin 3.8 g/dL (3.4-5.0) Albumin/Globulin Ratio 1.3 (1.0-1.7) Lipase 127 U/L (73-393) Laboratory Tests 09/10/18 02:03 Laboratory Tests 09/10/18 02:03 EKG EKG @0158 NSR at 64bpm, NO ST elevation, compared to prior EKG from 03/13/18 which noted nonspecific t wave inversions from V3-V6 which are no longer evident. Radiology/Procedures Radiology/Procedures CXR 2 view (preliminary interpretation by ED physician): NO acute process Course & Med Decision Making Course & Med Decision Making Pertinent Labs and Imaging studies reviewed. (See chart for details) [] Dragon Disclaimer Dragon Disclaimer This electronic medical record was generated, in whole or in part, using a voice recognition dictation system. Departure Departure Impression: Primary Impression: Chest pain Disposition: 09 ADMITTED INPATIENT Admitting Physician: Mary Moran Condition: STABLE Referrals: DAVID GUALLPA (PCP) Problem Qualifiers Primary Impression: Chest pain Chest pain type: unspecified Qualified Codes: R07.9 - Chest pain, unspecified PUMA CHAMBERLAIN DO September 10, 2018 03:41
--- NOTE | 2018-09-10 04:10 | NUR ---
Patient admitted from ED with CP. Pt denies chest pain upon arrival to unit. Patient came to floor by herself. Tired wanted to sleep. RN completed admission assessment and admission profile. RN will continue to monitor
[2018-09-10 04:15] VITALS: BP 138/81
[2018-09-10] MEDS ORDERED: fentaNYL PF VIAL 100 MCG/2 ML VIAL IV PRN (04:15)
[2018-09-10] MEDS ORDERED: ONDANSETRON PF 4 MG/2 ML VIAL. IV PRN (04:15)
[2018-09-10] MEDS ORDERED: AMOX1TAB25 PO (04:56)
[2018-09-10] MEDS ORDERED: CYCL10TA2 PO (04:56)
[2018-09-10] MEDS ORDERED: ATOR20TA PO (04:56)
[2018-09-10] MEDS ORDERED: MELO15TA23 PO (04:56)
[2018-09-10] MEDS ORDERED: MOME13HF2 IH (04:56)
[2018-09-10] MEDS ORDERED: LEVO5TAB29 PO (04:56)
[2018-09-10] MEDS ORDERED: LORA10TA3 PO (04:56)
--- NOTE | 2018-09-10 06:55 | EKG ---
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
[2018-09-10 07:00] VITALS: BP 129/75
--- NOTE | 2018-09-10 08:13 | RAD ---
Chest, 2 views, 09/10/2018: HISTORY: Chest pain Comparison is made to a study from 03/13/2018. The heart size and pulmonary vascularity are normal. There is mild tortuosity of the thoracic aorta. No pulmonary infiltrate is seen. There is no evidence of pleural fluid. IMPRESSION: No acute cardiopulmonary abnormality is detected. Electronically signed by: Victor Hugo Plasencia MD (09/10/2018 8:10 AM) [facility]
--- NOTE | 2018-09-10 09:38 | PDOC2 ---
ZULMA OSBORN INVESTMENT ASSOCIATE 09/10/18 0938: CARDIAC CONSULT DATE OF CONSULT Date of Consult DATE: 09/10/18 TIME: 09:27 REASON FOR CONSULT Reason for Consult: Chest pain REFERRING PHYSICIAN Referring Physician: Dale SOURCE Source: Chart review, Patient HISTORY OF PRESENT ILLNESS HISTORY OF PRESENT ILLNESS This is a pleasant 58 yo female admitted for complains of chest pain. Reports no palpitations or any recent falls or injury but last night about 1 PM she started having left chest tightness and left arm tingling with nausea and some SOA. same symptoms when she had her C in 03/2018. No diaphoresis. Reports no recent changes to her activity tolerance with no TURNER and no exertional CP. She continues to comply with her medications but noncompliant with smoking cessation and CPAP use. Currently she is asymptomatic and no changes in her telemetry reading. PAST MEDICAL HISTORY Past Medical History Cardiovascular: Other (murmur), NICM, Stress induced CM Pulmonary: Other (YAEL) CENTRAL NERVOUS SYSTEM: Other (No pertinent history) GI: No pertinent hx Heme/Onc: Cancer (cervical CA) Psych: Anxiety (unmedicated) Musculoskeletal: Osteoarthritis, Other (cervical stenosis) Rheumatologic: Fibromyalgia Infectious disease: No pertinent hx ENT: No pertinent hx Renal/: No pertinent hx Endocrine: Diabetes (pre) Dermatology: No pertinent hx PAST SURGICAL HISTORY Past Surgical History Hysterectomy, [facility] FAMILY HISTORY Family History: Coronary Artery Disease SOCIAL HISTORY Smoke: <1 pack per day ALCOHOL: none Drugs: None Lives: with Family CURRENT MEDICATIONS CURRENT MEDICATIONS Current Medications Medications (Trade) Dose Ordered Sig/Blake Route PRN Reason Start Time Stop Time Status Last Admin Dose Admin Aspirin (Scar Aspirin) 325 mg 1X ONCE PO 09/10/18 02:00 09/10/18 02:01 DC 09/10/18 02:13 ALLERGIES ALLERGIES: Coded Allergies: paroxetine (Verified Allergy, Severe, insomnia, 11/27/15) ROS Review of System 14 point ROS evaluated with pertinent positives noted per HPI PHYSICAL EXAM General: Alert, Oriented X3, Cooperative, No acute distress HEENT: Atraumatic, Mucous membr. moist/pink Lungs: Clear to auscultation, Normal air movement Heart: Regular rate (SR no ectopies), Normal S1, Normal S2, No murmurs Abdomen: Soft, No tenderness Extremities: No cyanosis, No edema Skin: No breakdown, No significant lesion Neuro: Normal speech, Sensation intact Psych/Mental Status: Mental status NL, Mood NL MUSCULOSKELETAL: Osteoarthritic changes both hands VITALS VITALS Vital Signs Date Time Temp Pulse Resp B/P (MAP) Pulse Ox O2 Delivery O2 Flow Rate FiO2 09/10/18 08:21 Room Air 09/10/18 07:00 97.7 76 18 129/75 (93) 100 97.7 LABS Lab: Laboratory Tests Test 09/10/18 02:03 09/10/18 07:00 White Blood Count 12.0 x10^3/uL (4.0-11.0) Red Blood Count 3.96 x10^6/uL (3.50-5.40) Hemoglobin 12.8 g/dL (12.0-15.5) Hematocrit 38.8 % (36.0-47.0) Mean Corpuscular Volume 98 fL (79-100) Mean Corpuscular Hemoglobin 32 pg (25-35) Mean Corpuscular Hemoglobin Concent 33 g/dL (31-37) Red Cell Distribution Width 13.2 % (11.5-14.5) Platelet Count 197 x10^3/uL (140-400) Neutrophils (%) (Auto) 53 % (31-73) Lymphocytes (%) (Auto) 35 % (24-48) Monocytes (%) (Auto) 8 % (0-9) Eosinophils (%) (Auto) 3 % (0-3) Basophils (%) (Auto) 1 % (0-3) Neutrophils # (Auto) 6.4 x10^3uL (1.8-7.7) Lymphocytes # (Auto) 4.1 x10^3/uL (1.0-4.8) Monocytes # (Auto) 1.0 x10^3/uL (0.0-1.1) Eosinophils # (Auto) 0.4 x10^3/uL (0.0-0.7) Basophils # (Auto) 0.1 x10^3/uL (0.0-0.2) Prothrombin Time 13.5 SEC (11.7-14.0) Prothromb Time International Ratio 1.1 (0.8-1.1) Sodium Level 143 mmol/L (136-145) Potassium Level 3.7 mmol/L (3.5-5.1) Chloride Level 108 mmol/L (98-107) Carbon Dioxide Level 26 mmol/L (21-32) Anion Gap 9 (6-14) Blood Urea Nitrogen 21 mg/dL (7-20) Creatinine 0.7 mg/dL (0.6-1.0) Estimated GFR (Cockcroft-Gault) 104.0 BUN/Creatinine Ratio 30 (6-20) Glucose Level 132 mg/dL (70-99) Calcium Level 9.1 mg/dL (8.5-10.1) Magnesium Level 1.8 mg/dL (1.8-2.4) Total Bilirubin 0.2 mg/dL (0.2-1.0) Aspartate Amino Transf (AST/SGOT) 28 U/L (15-37) Alanine Aminotransferase (ALT/SGPT) 31 U/L (14-59) Alkaline Phosphatase 107 U/L (46-116) Creatine Kinase 321 U/L (26-192) Creatine Kinase MB (Mass) 1.6 ng/mL (0.0-3.6) Creatine Kinase MB Relative Index 0.5 % (0-4) Troponin I Quantitative 0.020 ng/mL (0.000-0.055) 0.232 ng/mL (0.000-0.055) EJ-Iwz-V-Type Natriuretic Peptide 24 pg/mL (0-124) Total Protein 6.8 g/dL (6.4-8.2) Albumin 3.8 g/dL (3.4-5.0) Albumin/Globulin Ratio 1.3 (1.0-1.7) Lipase 127 U/L (73-393) ECHOCARDIOGRAM ECHOCARDIOGRAM <Conclusion> Distal half of the LV is moderately hypokinetic with mid to distal inferoseptum and apex with severe hypokinesis. Left ventricle systolic function is low normal. The Ejection Fraction is 50%. DATE: 03/13/18 1446 STRESS TEST STRESS TEST Conclusion 1. Baseline abnormal EKG with T-wave inversion but no EKG evidence of stressed induced ischemia. 2. Nuclear imaging shows reversible ischemia in the in the anteroseptal wall with a small region of a probable old infarct. 3. Left ventricular systolic function is intact with an ejection fraction of 56%. 4. Moderately high risk Lexiscan nuclear stress test with reversible ischemia in the anterior septal wall. DATE: 04/21/18 1330 HEART CATH HEART CATH LEFT VENTRICULOGRAM: EF 55% Anterobasal: Normal. Anterolateral: Mild hypokinesis. Apical: Akinetic. Diaphragmatic: Mild hypokinesis. Posterobasal: Normal CORONARY ANGIOGRAPHY: LM is a large caliber vessel with normal angiographic appearance. LAD is a large caliber vessel with an apical 60% stenosis. Ramus is a moderate caliber vessel with normal angiographic apeparance. LCx is a moderate caliber non-dominant vessel with normal angiographic appeara nce. OM1 is a moderate caliber vessel with normal angiographic appearance. RCA is a large caliber dominant vessel with a proxmial 50% stenosis. RPDA and RPL are moderate caliber vessels with normal angiographic appearance. Conclusion 1. Two vessel coronary disease. 2. No clear culprit lesion noted, suspect stress induced CMP. Recommendations Aggressive medical therapy. 03/13/2018 18:33:50 ASSESSMENT/PLAN ASSESSMENT/PLAN 1. CP: Same features back with 03/2018 with LHC. 2. Elevated Trop peaked at 0.2.EKG with early repolarization same as 12/2017 no acute changes. Likely microvascular dysfunction, 3. Hx of NICM/stress induced CM 4. CAD: recent LHC in 03/2018 noted with moderate lesion to RCA and LAD. 5. HTN: controlled 6. HLP 7. Hx of fibromyalgia/anxiety 8. Tobaccoism Recommendations 1. TTE, lipids, obtain UDS 2. Continue with home low dose toprol lisinopril, lipitor. Will start on imdur pending BP trend 3. LHC is a consideration given her moderate CAD, awaiting EKG and TTE. Will discuss with primary pulmonologist. 4. Continue ASA and plavix. . 5. Smoking cessation. Still not using her CPAP, encouraged MANUEL LOYOLA MD 09/10/18 9398: CARDIAC CONSULT ASSESSMENT/PLAN ASSESSMENT/PLAN Patient seen and examined. Agree with above nurse practitioner note. 58-year-old woman well known to us from her previous visit coming in with chest pain that is suggestive of unstable angina. She has an elevated troponin. She does have known coronary disease. I discussed with her continued medical therapy versus repeat cardiac catheterization. She wishes to have definitive evaluation with a cardiac catheterization. Her and her family understand the risks and benefits. We will proceed with cardiac catheterization tomorrow. ZULMA OSBORN APRN September 10, 2018 09:38 MANUEL LOYOLA MD September 10, 2018 17:08
--- NOTE | 2018-09-10 09:54 | PDOC ---
Provider Note Provider Note Pt seen.H&P dictated.#[id number]. JEMAL LUDWIG MD September 10, 2018 09:54
[2018-09-10] MEDS: CYCLOBENZAPRINE 10 MG TABLET. PO SCH ×2 (10:00→12:24)
[2018-09-10 10:13] LABS: CHOLESTEROL/HDL RATIO 2.2
--- NOTE | 2018-09-10 10:19 | EKG ---
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
[2018-09-10 11:28] VITALS: BP 144/76
--- NOTE | 2018-09-10 11:31 | HP ---
ADMIT DATE: 09/10/2018 LOCATION: 210. REASON FOR ADMISSION TO THE HOSPITAL: Chest pain. The patient has a 60% lesion and two-vessel disease. HISTORY OF PRESENT ILLNESS: The patient is a 58-year-old female, patient of Dr. Cleaning, has history of fibromyalgia, had a cardiac cath six months ago, which shows two-vessel disease, 50%-60%, 50% ejection fraction. She was having chest pain, came to the Emergency Room. First EKG and troponin was negative, was admitted to the hospital. Cardiology was consulted. PAST MEDICAL HISTORY: He has history of minimal coronary artery disease, hypertension, fibromyalgia, cervical cancer. PAST SURGICAL HISTORY: He had hysterectomy, had a cardiac catheterization, had a 60% disease around six months ago. ALLERGIES: TO PAROXETINE. MEDICATIONS AT HOME: The patient is on cyclobenzaprine, Lyrica 50 mg twice a day, Flexeril 10 mg daily, Cymbalta 60 mg daily, lisinopril 2.5 mg daily, loratadine 10 mg daily, Dulera twice a day two puffs, multivitamin daily, aspirin 81 mg daily, atorvastatin 20 mg daily, metoprolol 12.5 daily. PERSONAL HISTORY: Smokes one pack. FAMILY HISTORY: Positive for CAD. REVIEW OF SYMPTOMS: CARDIAC: Denies any chest pain. GASTROINTESTINAL: No nausea or vomiting. NEUROLOGICAL: No weakness. Rest of the 14 systems was reviewed and negative. PHYSICAL EXAMINATION: GENERAL: The patient is pleasant, not in any distress. VITAL SIGNS: At the time of admission shows a temperature 98, pulse 69, respirations 18, blood pressure 130/80, 97 on room air. HEENT: Head is atraumatic. Pupils equal. Oral cavity: No congestion. NECK: Supple. Thyroid not enlarged. JVD not elevated. CHEST: Symmetrical. CARDIOVASCULAR: S1, S2. LUNGS: Clear to auscultation. ABDOMEN: Soft, bowel sounds present, no mass palpable. EXTERNAL GENITALIA: No Aquino. RECTAL: Deferred. EXTREMITIES: No calf tenderness, no edema. Pulses 1+. NEUROLOGIC: Moving all extremities. No focal deficits noted. LABORATORY DATA: Shows a white count of 12, hemoglobin 13, platelets of 197. INR 1.1. Electrolytes show sodium 143, potassium 3.7, chloride 108, bicarbonate 26, BUN 25, creatinine 0.7, glucose 132, magnesium 1.8. LFTs normal. CPK 321. Troponin 0.02, went up to 0.2. Chest x-ray was no acute abnormality. EKG negative for acute ischemia. FINAL IMPRESSION: 1. Chest pain for cardiac evaluation. Slight elevation in troponin, non-ST elevation myocardial infarction. 2. Coronary artery disease. The patient had a cardiac cath six months ago, which shows two-vessel disease, left anterior descending has a 60% stenosis in the apical region and right coronary artery is a large, dominant, has 50% stenosis. 3. Hypertension. 4. Hyperlipidemia. 5. Fibromyalgia. 6. History of cervical cancer status post hysterectomy. 7. History of smoking. PLAN: At this time, was admitted to hospital. Cardiac enzymes and EKG. Cardiology is consulted. The patient is on aspirin, beta blockers, ENEDINA inhibitors, cholesterol medicines. We will await further recommendations by Cardiology. JEMAL LUDWIG MD DR: TIFFANY/felipe JOB#: [id number] / [id number] DAVID Saucedo
--- NOTE | 2018-09-10 11:39 | NUR ---
SS following for discharge planning. SS reviewed pt chart. Pt is from home with spouse and is currently on room air. No discharge needs noted at this time. SS will continue to follow for discharge planning.
[2018-09-10] MEDS: ALBUTEROL SULFATE 2.5 MG/3 ML NEBU. NEB SCH ×3 (12:07→23:34)
[2018-09-10] MEDS: BUDESONIDE 0.5 MG/2 ML NEBU. NEB SCH ×2 (12:08→19:16)
[2018-09-10] MEDS: DULoxetine HCL 30 MG CAPSULE.DR PO SCH (12:24)
[2018-09-10] MEDS: PREGABALIN 50 MG CAPSULE PO SCH ×2 (12:26→20:04)
[2018-09-10] MEDS: METOPROLOL SUCC 24HR ER 25 MG TAB.ER.24H. PO SCH (12:27)
[2018-09-10] MEDS: MULTIVITAMIN with MINERAL TABLET. PO SCH (12:27)
[2018-09-10] MEDS: LISINOPRIL 5 MG TABLET. PO SCH (12:28)
[2018-09-10] MEDS: ISOSORBIDE MONONITRATE ER 30 MG TAB.ER.24H PO SCH (12:28)
[2018-09-10] MEDS ORDERED: CYCLOBENZAPRINE 10 MG TABLET. PO PRN (13:00)
--- NOTE | 2018-09-10 14:04 | CARD ---
MR#: [id number] Date of Study: 09/10/2018 Ordering Physician: ZULMA OSBORN, Referring Physician: JEMAL LUDWIG, Tech: Jacey Rosario APPROVED REPORT EXAM: Two-dimensional and M-mode echocardiogram with Doppler and color Doppler. Other Information Quality : FairHR: 58bpm Technically limited study due to COPD INDICATION Chest Pain RISK FACTORS Hyperlipidemia Smoking 2D DIMENSIONS RVDd2.4 (2.9-3.5cm)Left Atrium(2D)2.7 (1.6-4.0cm) IVSd1.3 (0.7-1.1cm)Aortic Root(2D)2.6 (2.0-3.7cm) LVDd4.6 (3.9-5.9cm)LVOT Diameter1.9 (1.8-2.4cm) PWd1.1 (0.7-1.1cm)LVDs3.0 (2.5-4.0cm) FS (%) 35.0 %SV62.7 ml Aortic Valve AoV Peak Elver.108.7cm/sAoV VTI23.2cm AO Peak GR.4.7mmHgLVOT Peak Elver.90.2cm/s LVOT VTI 22.48cmAO Mean GR.3mmHg CASSIE (VMAX)1.56jf8UDI (VTI)2.69cm2 Mitral Valve MV E Nsvjimbf13.8cm/sMV E Peak Gr.120mmHg MV DECEL DCQF263eyCT A Sqenoqfi96.4cm/s MV FRX30tqF/A Ratio0.9 MVA (PHT)3.45cm2 TDI E/Lateral E'7.9E/Medial E'8.9 Pulmonary Valve PV Peak Qkatcefs987.2cm/sPV Peak Grad.4mmHg Tricuspid Valve TR P. Jwxiyhrh849yl/sRAP IVNRFGPR5reGz TR Peak Gr.58quZbENME79mlNy Pulmonary Vein S1 Abfipaqn52.7cm/sD2 Sjnhthyo79.6cm/s PVa xjohyvjh885olpe LEFT VENTRICLE The left ventricle is normal size. There is mild concentric left ventricular hypertrophy. The left ve ntricular systolic function is low normal. The Ejection Fraction is 50-55%. There is mild hypokinesis in the apical septal wall. Transmitral Doppler flow pattern is Grade I-abnormal relaxation pattern. RIGHT VENTRICLE The right ventricle is normal size. There is normal right ventricular wall thickness. The right ventr icular systolic function is normal. ATRIA The left atrium size is normal. The right atrium size is normal. The interatrial septum is intact wit h no evidence for an atrial septal defect or patent foramen ovale as noted on 2-D or Doppler imaging. AORTIC VALVE The aortic valve is normal in structure and function. Doppler and Color Flow revealed no significant aortic regurgitation. There is no significant aortic valvular stenosis. MITRAL VALVE The mitral valve is normal in structure and function. There is no evidence of mitral valve prolapse. There is no mitral valve stenosis. Doppler and Color-flow revealed trace mitral regurgitation. TRICUSPID VALVE The tricuspid valve is not well visualized. Doppler and Color Flow revealed trace tricuspid regurgita tion with an estimated PAP of 25 mmHg. There is no tricuspid valve stenosis. PULMONIC VALVE The pulmonic valve is not well visualized. Doppler and Color Flow revealed trace pulmonic valvular re gurgitation. GREAT VESSELS The aortic root is normal in size. The IVC is normal in size and collapses >50% with inspiration. PERICARDIAL EFFUSION There is no evidence of significant pericardial effusion. Critical Notification Critical Value: No <Conclusion> The left ventricle is normal size. The left ventricular systolic function is low normal. The Ejection Fraction is 50-55%. There is mild hypokinesis in the apical septal wall. There is mild concentric left ventricular hypertrophy. There is no significant aortic valvular stenosis. Doppler and Color Flow revealed no significant aortic regurgitation. Doppler and Color-flow revealed trace mitral regurgitation. Doppler and Color Flow revealed trace tricuspid regurgitation with an estimated PAP of 25 mmHg. Signed by : Connor Gant MD Electronically Approved : 09/10/2018 14:04:18
[2018-09-10 14:36] LABS: BARBITURATES NEG (NEG); BENZODIAZEPINES NEG (NEG); CANNABINOIDS NEG (NEG); COCAINE NEG (NEG); METHADONE NEG (NEG); OPIATES POS (NEG); PHENCYCLIDINE NEG (NEG)
[2018-09-10 14:59] LABS: AMPHETAMINE/METHAMPHETAMINE NEG (NEG)
[2018-09-10 15:00] VITALS: BP 116/72
[2018-09-10] MEDS ORDERED: CLOP75TA PO (15:32)
[2018-09-10 19:25] VITALS: BP 119/65
[2018-09-10] MEDS ORDERED: OXYC-411 PO (20:30)
[2018-09-10] MEDS: oxyCODONE/APAP 10/325 1 TAB TABLET PO SCH (20:40)
[2018-09-10] MEDS ORDERED: NON FORMULARY ITEM (Mometasone/Formoterol (Dulera 100 Mcg/5 Mcg Inhaler) 2 PUFF) IH SCH (21:00)
[2018-09-10] MEDS ORDERED: ATORVASTATIN CALCIUM 20 MG TABLET PO SCH (21:00)
[2018-09-10 23:00] VITALS: BP 128/74
[2018-09-11] VITALS (16 sets, daily range): BP systolic 105–178; BP diastolic 57–100
[2018-09-11] MEDS: ALBUTEROL SULFATE 2.5 MG/3 ML NEBU. NEB SCH ×4 (06:00→20:08)
[2018-09-11] MEDS ORDERED: LIDOCAINE 1% PF 2 ML VIAL. ONE (07:36)
[2018-09-11] MEDS ORDERED: IOHEXOL 300 MG/ML 100ML VIAL. ONE ×2 (07:36→08:36)
[2018-09-11] MEDS ORDERED: HEPARIN for ARTERIAL LINE 1,500 ML ONE (07:36)
[2018-09-11] MEDS ORDERED: CLOPIDOGREL BISULFATE 75 MG TABLET PO SCH ×2 (08:00→09:00)
[2018-09-11] MEDS ORDERED: fentaNYL PF VIAL 100 MCG/2 ML VIAL ONE (08:05)
[2018-09-11] MEDS ORDERED: NITROGLYCERIN 200 MCG/2 ML SYRINGE FOR CATH/VASC LAB. ONE ×3 (08:05→08:45)
[2018-09-11] MEDS ORDERED: MIDAZOLAM HCL/PF 2 MG/2 ML VIAL. ONE (08:05)
[2018-09-11] MEDS ORDERED: HEPARIN for IV BOLUS 10,000 UNIT/10 ML VIAL. ONE ×2 (08:05→08:16)
[2018-09-11] MEDS ORDERED: VERAPAMIL 5 MG/2 ML VIAL. ONE (08:05)
--- NOTE | 2018-09-11 08:06 | PDOC ---
MODERATE SEDATION ASSESSMENT RISKS/ALTERNATIVES Risks/Alternatives Risks and alternatives of this type of sedation and procedure discussed with: RISK/ALTERNATIVES: Patient H & P ON CHART H & P H & P on chart and reviewed for co-morbid conditions and appropriate labs. H&P ON CHART: Yes STATUS PREG STATUS ASSESSED: N/A MEDS/ALLERGIES REVIEWED Meds/Allergies Reviewed Medications and Allergies including time and route of recently administered narcotics and sedatives. MEDS/ALLERGIES REVIEWED: Yes ASA RATING ASA RATING: II AIRWAY ASSESSMENT Airway Assessment Airway patency, oral function limitations, presence of caps, crowns, dentures, partials, and ability to extend neck assessed. AIRWAY ASSESSMENT: Yes MALLAMPATI SCORE MALLAMPATI SCORE: II PRE-SEDATION ASSESSMENT PRE-SEDATION ASSESSMENT: Yes MANUEL LOYOLA MD September 11, 2018 08:06
[2018-09-11] MEDS ORDERED: TIROFIBAN 5MG -0.9% NS 0 ML IV ONE (08:16)
[2018-09-11] MEDS ORDERED: BIVALIRUDIN 250 MG VIAL. IV ONE ×2 (08:17→08:45)
[2018-09-11] MEDS ORDERED: CONTRAST GIVEN. MC PRN (08:45)
[2018-09-11] MEDS ORDERED: NITROGLYCERIN 200 MCG/2 ML SYRINGE FOR CATH/VASC LAB. IART ONE (08:45)
[2018-09-11] MEDS ORDERED: MIDAZOLAM HCL/PF 2 MG/2 ML VIAL. IV ONE (08:45)
[2018-09-11] MEDS ORDERED: PRASUGREL 10 MG TABLET. PO ONE (08:45)
[2018-09-11] MEDS ORDERED: fentaNYL PF VIAL 100 MCG/2 ML VIAL IV ONE (08:45)
[2018-09-11] MEDS ORDERED: VERAPAMIL 5 MG/2 ML VIAL. IART ONE (08:45)
[2018-09-11] MEDS ORDERED: LIDOCAINE 1% PF 2 ML VIAL. INJ ONE (08:45)
[2018-09-11] MEDS ORDERED: HEPARIN for IV BOLUS 10,000 UNIT/10 ML VIAL. IART ONE (08:45)
[2018-09-11] MEDS ORDERED: LEVOCETIRIZINE DIHYDROCHLORIDE PO SCH (09:00)
[2018-09-11] MEDS ORDERED: IOHEXOL 350 MG/ML 100 ML VIAL. IART ONE (09:00)
--- NOTE | 2018-09-11 09:22 | CARD ---
MR#: [id number] Date of Study: 09/11/2018 Ordering Physician: ZULMA OSBORN, Referring Physician: JEMAL LUDWIG, Tech: RT Gabriela (R) MIL APPROVED REPORT Technologist: RT Gabriela (R) IML Nurse: Kimmie Schwarz R.N. Procedure(s) performed: MOD SED:46 MIN FLUORO TIME:8.4 MIN DAP:97 CONTRAST: 148ML HISTORY The patient is a 58 year-old female with a history of : coronary artery disease, tobacco history() , hypertension, dyslipidemia. INDICATION The indication(s) include : non-STEMI . CS Clinical Frailty Scale CS Clinical Frailty Scale: Managing Well Heart Failure Heart Failure: Yes If Yes, Newly Diagnosed: No If Yes, HF Type: Diastolic If Yes, NYHA Class: Class II PROCEDURE NARRATIVE INFORMED CONSENT: After explaining the risks and benefits of the procedure and alternatives, informed consent was obtained. The patient was brought electively to the cardiac catheterization lab. A timeout was performed confi rming the patient's name, date of , procedure, and site of procedure. All necessary personnel w ere wearing the appropriate protective equipment and radiation monitor devices. (See nursing notes for medications administered). ACCESS: The right wrist was sterilely prepped and draped in the usual fashion. The right wrist was infiltrat ed with 1 mL of 2% lidocaine for subcutaneous anesthesia. A 6 [place] Terumo glide sheath was inserte d into the right radial artery without difficulty. CORONARY ANGIOGRAPHY: Right and left coronary angiography was performed using a 6Fr TIG 4.0 catheter. Left ventricular en d diastolic pressure was obtained with a pigtail catheter and pullback was performed after left ventr iculography. All catheter exchanges and advancements were performed over a guidewire. FINDINGS: HEMODYNAMICS: LVEDP 20 mm Hg No gradient on LV to aortic pullback. AO: 128/78 LEFT VENTRICULOGRAM: Deferred due to known EF of 50% with apical hypokinesis on echo. CORONARY ANGIOGRAPHY: LM is a large caliber vessel with normal angiographic appearance. LAD is a large caliber vessel with mild proximal and mid irregularities of up to 30% and an apical 70 % stenosis. The LAD is hyperdominant and wraps around the apex. Ramus is a moderate caliber vessel with normal angiographic apeparance. LCx is a moderate caliber non-dominant vessel with normal angiographic appearance. OM1 is a moderate caliber vessel with normal angiographic appearance. RCA is a moderate caliber dominant vessel with normal angiographic appearance. RPDA and RPL are moderate caliber vessels with normal angiographic appearance. INTERVENTIONAL TECHNIQUE: PCI of the LAD Due to persistent chest pain, elevated biomarkers and apical LAD that supplies a moderate area of sandra cardium, it was felt that PCI would provide symptomatic benefit. Furthermore, there was mild ischemia in the apical territory on previous stress testing. Bivalirudin was used for anticoagulation. Throug h a 6Fr EBU 3.5 guide catheter, a 0.014'' Prowater wire was advanced to the apical LAD. Balloon angio plasty was performed with a Trek 2.5/12 balloon and the lesion was stented with a Xience Lo 3.0/1 5 mm JUAN LUIS. Final angiography demonstrated excellent stent expansion with PHYLLIS 3 flow. INTERVENTIONAL TECHNIQUE: iFR of the RCA Due to moderate disease in the RCA, an iFR study was performed to evaluate for ischemia. Bivalirudin was continued. Through a JR 4 guide catheter, a 0.014'' Verrata pressure wire was advanced to the dis nelda RCA after appropriate normalization and intracoronary NTG administration. iFR was measured at 0.9 5 and therefore further intervention was deferred. Final angiography revealed no evidence of guide or wire related complications. CLOSURE: At case completion the right radial sheath was removed and a Terumo radial band was applied with 13 m l of air. COMPLICATIONS: The patient tolerated the procedure well and there were no immediate complications. PHYLLIS Flow PHYLLIS Flow (Pre-Intervention): PHYLLIS-3 PHYLLIS Flow (Post-Intervention): PHYLLIS-3 Conclusion 1. Acute on chronic diastolic HF, LVEDP 20 mm Hg 2. Two vessel coronary disease. 3. Successful PCI of the apical LAD with implantation of a Xience Lo 3.0/15 JUAN LUIS 4. Negative iFR of the RCA Recommendations ASA 81mg daily Prasugrel 10mg daily for 1 full year if tolerated High dose statin therapy and smoking cessation. Cardiac rehab referral. Signed by : Samuel Trujillo, Electronically Approved : 09/11/2018 09:21:56
--- NOTE | 2018-09-11 09:42 | PDOC ---
PROGRESS NOTES Subjective Subjective Just back from cardiac lab Objective Objective Vital Signs Date Time Temp Pulse Resp B/P (MAP) Pulse Ox O2 Delivery O2 Flow Rate FiO2 09/11/18 09:00 63 17 Room Air 09/11/18 08:55 98 09/11/18 07:00 97.7 131/71 (91) 97.7 Intake and Output 09/11/18 07:00 Intake Total 240 ml Output Total 2200 ml Balance -1960 ml Intake Other 240 ml Output Urine Total 2200 ml Physical Exam Abdomen: Soft, No tenderness Heart: Regular rate (SR no ectopies), Normal S1, Normal S2, No murmurs Extremities: No cyanosis, No edema General: Alert, Oriented X3, Cooperative, No acute distress HEENT: Atraumatic, Mucous membr. moist/pink Lungs: Clear to auscultation, Normal air movement MUSCULOSKELETAL: Osteoarthritic changes both hands Neuro: Normal speech, Sensation intact Psych/Mental Status: Mental status NL, Mood NL Skin: No breakdown, No significant lesion Diagnosis Problem List Problems Medical Problems: (1) Chest pain Status: Acute Assessment Assessment Problems Medical Problems: (1) Chest pain Status: Acute FINAL IMPRESSION: 1. Chest pain for cardiac evaluation. Slight elevation in troponin, non-ST elevation myocardial infarction. 2. Coronary artery disease. The patient had a cardiac cath six months ago, which shows two-vessel disease, left anterior descending has a 60% stenosis in the apical region and right coronary artery is a large, dominant, has 50%stenosis. 3. Hypertension. 4. Hyperlipidemia. 5. Fibromyalgia. 6. History of cervical cancer status post hysterectomy. 7. History of smoking. PLAN: Cardiac cath placement of stent JUAN LUIS in distal LAD. lab s reviewed. troponin trending down At this time, was admitted to hospital. Cardiac enzymes and EKG. Cardiology is consulted. The patient is on aspirin, beta blockers, ENEDINA inhibitors, cholesterol medicines. We will await further recommendations by Cardiology. Plan Plan of Care Problems Medical Problems: (1) Chest pain Status: Acute Comment Review of Relevant I have reviewed the following items shimon (where applicable) has been applied. Labs Laboratory Tests Test 09/10/18 10:03 09/10/18 13:46 Troponin I Quantitative 0.196 ng/mL (0.000-0.055) Urine Opiates Screen Pos (NEG) Urine Methadone Screen Neg (NEG) Urine Barbiturates Neg (NEG) Urine Phencyclidine Screen Neg (NEG) Urine Amphetamine/Methamphetamine Neg (NEG) Urine Benzodiazepines Screen Neg (NEG) Urine Cocaine Screen Neg (NEG) Urine Cannabinoids Screen Neg (NEG) Urine Ethyl Alcohol Neg (NEG) Medications Current Medications Albuterol Sulfate (Ventolin Neb Soln) 2.5 mg Q6HRS NEB Last administered on 09/10/18at 19:14; Start 09/10/18 at 12:00 Aspirin (Ecotrin) 81 mg DAILYWBKFT PO ; Start 09/11/18 at 08:00 Atorvastatin Calcium (Lipitor) 20 mg QHS PO Last administered on 09/10/18at 20:03; Start 09/10/18 at 21:00 Bivalirudin (Angiomax) 250 mg 1X ONCE IV Last administered on 09/11/18at 08:54; Start 09/11/18 at 08:45; Stop 09/11/18 at 08:46; Status DC Bivalirudin (Angiomax) 250 mg STK-MED ONCE IV ; Start 09/11/18 at 08:17; Stop 09/11/18 at 08:18; Status DC Budesonide (Pulmicort) 0.5 mg RTBID NEB Last administered on 09/10/18at 19:16; Start 09/10/18 at 11:00 Cetirizine HCl (ZyrTEC) 10 mg QHS PO ; Start 09/11/18 at 21:00 Clopidogrel Bisulfate (Plavix) 75 mg DAILY PO ; Start 09/11/18 at 09:00; Status UNV Clopidogrel Bisulfate (Plavix) 75 mg DAILYWBKFT PO ; Start 09/11/18 at 08:00 Cyclobenzaprine HCl (Flexeril) 10 mg DAILY PO ; Start 09/10/18 at 10:00; Stop 09/10/18 at 12:41; Status DC Cyclobenzaprine HCl (Flexeril) 10 mg PRN DAILY PRN PO MUSCLE SPASMS; Start 09/10/18 at 13:00 Duloxetine HCl (Cymbalta) 60 mg DAILY PO Last administered on 09/10/18at 12:24; Start 09/10/18 at 10:00 Fentanyl Citrate (Fentanyl 2ml Vial) 100 mcg 1X ONCE IV Last administered on 09/11/18at 08:55; Start 09/11/18 at 08:45; Stop 09/11/18 at 08:46; Status DC Fentanyl Citrate (Fentanyl 2ml Vial) 100 mcg STK-MED ONCE .ROUTE ; Start 09/11/18 at 08:05; Stop 09/11/18 at 08:06; Status DC Heparin Sodium (Porcine) (Heparin Sodium) 2,500 unit 1X ONCE IART Last administered on 09/11/18at 08:55; Start 09/11/18 at 08:45; Stop 09/11/18 at 08:46; Status DC Heparin Sodium (Porcine) (Heparin Sodium) 10,000 unit STK-MED ONCE .ROUTE ; Start 09/11/18 at 08:05; Stop 09/11/18 at 08:06; Status DC Heparin Sodium (Porcine) (Heparin Sodium) 10,000 unit STK-MED ONCE .ROUTE ; Start 09/11/18 at 08:16; Stop 09/11/18 at 08:17; Status DC Heparin Sodium/ Sodium Chloride 1,500 ml @ As Directed STK-MED ONCE .ROUTE ; Start 09/11/18 at 07:36; Stop 09/11/18 at 07:37; Status DC Heparin Sodium/ Sodium Chloride (HEPARIN for ARTERIAL LINE FLUSH) 1,000 unit 1X ONCE IART Last administered on 09/11/18at 08:54; Start 09/11/18 at 08:45; Stop 09/11/18 at 08:46; Status DC Info (CONTRAST GIVEN -- Rx MONITORING) 1 each PRN DAILY PRN MC SEE COMMENTS; Start 09/11/18 at 08:45; Stop 09/13/18 at 08:44 Iohexol (Omnipaque 300 Mg/ml) 100 ml STK-MED ONCE .ROUTE ; Start 09/11/18 at 07:36; Stop 09/11/18 at 07:37; Status DC Iohexol (Omnipaque 300 Mg/ml) 100 ml STK-MED ONCE .ROUTE ; Start 09/11/18 at 08:36; Stop 09/11/18 at 08:37; Status DC Iohexol (Omnipaque 350 Mg/ml) 143 ml 1X ONCE IART ; Start 09/11/18 at 09:00; Stop 09/11/18 at 09:01; Status DC Isosorbide Mononitrate (Imdur) 30 mg DAILY PO Last administered on 09/10/18at 12:28; Start 09/10/18 at 12:00 Lidocaine HCl (Xylocaine-Mpf 1% 2ml Vial) 2 ml 1X ONCE INJ Last administered on 09/11/18at 08:56; Start 09/11/18 at 08:45; Stop 09/11/18 at 08:46; Status DC Lidocaine HCl (Xylocaine-Mpf 1% 2ml Vial) 2 ml STK-MED ONCE .ROUTE ; Start 09/11/18 at 07:36; Stop 09/11/18 at 07:37; Status DC Lisinopril (Prinivil) 2.5 mg DAILY PO Last administered on 09/10/18at 12:28; Start 09/10/18 at 10:00 Metoprolol Succinate (Toprol Xl) 12.5 mg DAILY PO Last administered on 09/10/18at 12:27; Start 09/10/18 at 10:00 Midazolam HCl (Versed) 2 mg 1X ONCE IV Last administered on 09/11/18 08:56; Start 09/11/18 at 08:45; Stop 09/11/18 at 08:46; Status DC Midazolam HCl (Versed) 2 mg STK-MED ONCE .ROUTE ; Start 09/11/18 at 08:05; Stop 09/11/18 at 08:06; Status DC Multivitamins (Thera M Plus) 1 tab DAILY PO Last administered on 09/10/18at 12:27; Start 09/10/18 at 10:00 Nitroglycerin (Nitroglycerin) 200 mcg STK-MED ONCE .ROUTE ; Start 09/11/18 at 08:05; Stop 09/11/18 at 08:06; Status DC Nitroglycerin (Nitroglycerin) 200 mcg STK-MED ONCE .ROUTE ; Start 09/11/18 at 08:37; Stop 09/11/18 at 08:38; Status DC Nitroglycerin (Nitroglycerin) 200 mcg STK-MED ONCE .ROUTE ; Start 09/11/18 at 08:45; Stop 09/11/18 at 08:46; Status DC Nitroglycerin (Nitroglycerin) 400 mcg 1X ONCE IART Last administered on 09/11/18at 08:56; Start 09/11/18 at 08:45; Stop 09/11/18 at 08:46; Status DC Non-Formulary Medication (Levocetirizine Dihydrochloride (Xyzal)) 1 tab DAILY PO ; Start 09/11/18 at 09:00; Status UNV Non-Formulary Medication (Mometasone/ Formoterol (Dulera 100 Mcg/5 Mcg Inhaler)) 2 puff BID IH ; Start 09/10/18 at 21:00; Status UNV Oxycodone/ Acetaminophen (Percocet 10/325) 1 tab HS PO Last administered on 09/10/18at 20:40; Start 09/10/18 at 21:00 Prasugrel (Effient) 60 mg 1X ONCE PO Last administered on 09/11/18at 08:57; Start 09/11/18 at 08:45; Stop 09/11/18 at 08:46; Status DC Pregabalin (Lyrica) 50 mg BID PO Last administered on 09/10/18at 20:04; Start 09/10/18 at 10:00 Tirofiban/Sodium Chloride 0 ml @ As Directed STK-MED ONCE IV ; Start 09/11/18 at 08:16; Stop 09/11/18 at 08:17; Status DC Verapamil HCl (Verapamil) 2.5 mg 1X ONCE IART Last administered on 09/11/18at 08:57; Start 09/11/18 at 08:45; Stop 09/11/18 at 08:46; Status DC Verapamil HCl (Verapamil) 5 mg STK-MED ONCE .ROUTE ; Start 09/11/18 at 08:05; Stop 09/11/18 at 08:06; Status DC Vitals/I & O Vital Sign - Last 24 Hours 09/10/18 09/10/18 09/10/18 09/10/18 11:28 12:11 12:27 12:28 Temp 98.2 98.2 Pulse 63 63 63 Resp 18 B/P (MAP) 144/76 (98) 144/76 144/76 Pulse Ox 100 98 O2 Delivery Room Air Room Air 09/10/18 09/10/18 09/10/18 09/10/18 12:28 15:00 19:16 19:25 Temp 98.2 98.6 98.2 98.6 Pulse 63 60 71 Resp 18 17 B/P (MAP) 144/76 116/72 (87) 119/65 (83) Pulse Ox 98 100 98 O2 Delivery Room Air Room Air Room Air 09/10/18 09/10/18 09/10/18 09/10/18 20:00 20:40 21:40 23:00 Temp 98.0 98.0 Pulse 67 Resp 18 18 B/P (MAP) 128/74 (92) Pulse Ox 98 98 95 O2 Delivery Room Air Room Air Room Air Room Air 09/11/18 09/11/18 09/11/18 09/11/18 03:02 07:00 08:55 08:57 Temp 98.3 97.7 98.3 97.7 Pulse 72 65 69 Resp 16 14 B/P (MAP) 105/58 (74) 131/71 (91) Pulse Ox 97 97 98 O2 Delivery Room Air Room Air Room Air 09/11/18 09:00 Pulse 63 Resp 17 O2 Delivery Room Air Intake and Output 09/10/18 09/10/18 09/11/18 15:00 23:00 07:00 Intake Total 240 ml Output Total 600 ml 1100 ml 500 ml Balance -600 ml -860 ml -500 ml JEMAL LUDWIG MD September 11, 2018 09:42
[2018-09-11] MEDS: METOPROLOL SUCC 24HR ER 25 MG TAB.ER.24H. PO SCH (09:46)
[2018-09-11] MEDS: ASPIRIN ENTERIC COATED 81 MG TABLET.DR. PO SCH (09:46)
[2018-09-11] MEDS: MULTIVITAMIN with MINERAL TABLET. PO SCH (09:46)
[2018-09-11] MEDS: PREGABALIN 50 MG CAPSULE PO SCH ×2 (09:47→20:42)
[2018-09-11] MEDS: DULoxetine HCL 30 MG CAPSULE.DR PO SCH (09:47)
[2018-09-11] MEDS: ISOSORBIDE MONONITRATE ER 30 MG TAB.ER.24H PO SCH (09:47)
[2018-09-11] MEDS: LISINOPRIL 5 MG TABLET. PO SCH (09:48)
[2018-09-11] MEDS ORDERED: HYDROcodone/APAP 10/325 1 TAB TABLET PO PRN (11:45)
[2018-09-11] MEDS: BUDESONIDE 0.5 MG/2 ML NEBU. NEB SCH ×2 (12:14→20:08)
[2018-09-11] MEDS: oxyCODONE/APAP 10/325 1 TAB TABLET PO SCH (20:44)
[2018-09-11] MEDS ORDERED: CETIRIZINE HCL 10 MG TABLET. PO SCH (21:00)
[2018-09-11] MEDS ORDERED: ATORVASTATIN CALCIUM 20 MG TABLET PO SCH (21:00)
[2018-09-12 03:17] VITALS: BP 109/55
[2018-09-12 07:00] VITALS: BP 122/69
[2018-09-12] MEDS ORDERED: PRASUGREL 10 MG TABLET. PO SCH (08:00)
[2018-09-12] MEDS: ASPIRIN ENTERIC COATED 81 MG TABLET.DR. PO SCH (08:30)
[2018-09-12] MEDS: MULTIVITAMIN with MINERAL TABLET. PO SCH (08:30)
[2018-09-12] MEDS: PREGABALIN 50 MG CAPSULE PO SCH (08:30)
[2018-09-12] MEDS: METOPROLOL SUCC 24HR ER 25 MG TAB.ER.24H. PO SCH (08:30)
[2018-09-12] MEDS: DULoxetine HCL 30 MG CAPSULE.DR PO SCH (08:30)
[2018-09-12 08:31] VITALS: BP 122/69
[2018-09-12] MEDS: ISOSORBIDE MONONITRATE ER 30 MG TAB.ER.24H PO SCH (08:31)
[2018-09-12] MEDS: LISINOPRIL 5 MG TABLET. PO SCH (08:31)
[2018-09-12] MEDS: ALBUTEROL SULFATE 2.5 MG/3 ML NEBU. NEB SCH (08:55)
[2018-09-12] MEDS: BUDESONIDE 0.5 MG/2 ML NEBU. NEB SCH (08:55)
--- NOTE | 2018-09-12 09:14 | PDOC ---
PROGRESS NOTES Subjective Subjective feels better today ,no chest pain Objective Objective Vital Signs Date Time Temp Pulse Resp B/P (MAP) Pulse Ox O2 Delivery O2 Flow Rate FiO2 09/12/18 08:58 99 Room Air 09/12/18 08:31 71 122/69 09/12/18 07:00 98.0 16 98.0 Intake and Output 09/12/18 07:00 Intake Total 1020 ml Output Total 2450 ml Balance -1430 ml Intake Oral 1020 ml Output Urine Total 2450 ml # Voids 1 Physical Exam Abdomen: Soft, No tenderness Heart: Regular rate (SR no ectopies), Normal S1, Normal S2, No murmurs Extremities: No cyanosis, No edema General: Alert, Oriented X3, Cooperative, No acute distress HEENT: Atraumatic, Mucous membr. moist/pink Lungs: Clear to auscultation, Normal air movement MUSCULOSKELETAL: Osteoarthritic changes both hands Neuro: Normal speech, Sensation intact Psych/Mental Status: Mental status NL, Mood NL Skin: No breakdown, No significant lesion Diagnosis Problem List Problems Medical Problems: (1) Chest pain Status: Acute Assessment Assessment Problems Medical Problems: (1) Chest pain Status: Acute FINAL IMPRESSION:Non Stemi 1. Chest pain for cardiac evaluation. Slight elevation in troponin, non-ST elevation myocardial infarction. 2. Coronary artery disease. The patient had a cardiac cath six months ago, which shows two-vessel disease, left anterior descending has a 60% stenosis in the apical region and right coronary artery is a large, dominant, has 50%st enosis. 3. Hypertension. 4. Hyperlipidemia. 5. Fibromyalgia. 6. History of cervical cancer status post hysterectomy. 7. History of smoking. PLAN: s/p stent placement ,doing well d/c home today on Effient 10 mg +81 mg asa Cardiac cath placement of stent JUAN LUIS in distal LAD. lab s reviewed.chol good troponin trending down At this time, was admitted to hospital. Cardiac enzymes and EKG. Cardiology is consulted. The patient is on aspirin, beta blockers, ENEDINA inhibitors, cholesterol medicines. We will await further recommendations by Cardiology. Plan Plan of Care Problems Medical Problems: (1) Chest pain Status: Acute Comment Review of Relevant I have reviewed the following items shimon (where applicable) has been applied. Medications Current Medications Acetaminophen/ Hydrocodone Bitart (Lortab 10/325) 1 tab PRN Q6HRS PRN PO PAIN Last administered on 09/11/18 12:32; Start 09/11/18 at 11:45 Albuterol Sulfate (Ventolin Neb Soln) 2.5 mg RTQID NEB Last administered on 09/12/18at 08:55; Start 09/11/18 at 16:00 Atorvastatin Calcium (Lipitor) 40 mg QHS PO Last administered on 09/11/18 20:43; Start 09/11/18 at 21:00 Cetirizine HCl (ZyrTEC) 10 mg QHS PO Last administered on 09/11/18 20:43; Start 09/11/18 at 21:00 Prasugrel (Effient) 10 mg DAILYWBKFT PO Last administered on 09/12/18 08:30; Start 09/12/18 at 08:00 Vitals/I & O Vital Sign - Last 24 Hours 09/11/18 09/11/18 09/11/18 09/11/18 09:25 09:40 09:46 09:47 Pulse 58 57 61 61 B/P (MAP) 147/85 (105) 138/75 (96) 138/75 138/75 09/11/18 09/11/18 09/11/18 09/11/18 09:48 09:55 10:10 10:40 Pulse 61 71 57 60 B/P (MAP) 138/75 141/98 (112) 147/94 (111) 148/75 (99) 09/11/18 09/11/18 09/11/18 09/11/18 11:00 11:10 12:10 12:14 Temp 98.0 98.0 Pulse 65 64 74 Resp 16 B/P (MAP) 148/100 (116) 148/100 (116) 118/76 (90) Pulse Ox 100 99 O2 Delivery Room Air Room Air 09/11/18 09/11/18 09/11/18 09/11/18 12:32 13:10 15:00 16:16 Temp 98.4 98.4 Pulse 83 71 Resp 16 B/P (MAP) 133/65 (87) 106/57 (73) Pulse Ox 96 98 O2 Delivery Room Air Room Air Room Air 09/11/18 09/11/18 09/11/18 09/11/18 19:58 20:08 20:09 20:44 Temp 98.7 98.7 Pulse 70 Resp 16 18 B/P (MAP) 121/66 (84) Pulse Ox 98 98 O2 Delivery Room Air Room Air Room Air Room Air 09/11/18 09/11/18 09/12/18 09/12/18 21:44 23:09 03:17 07:00 Temp 98.0 98.2 98.0 98.0 98.2 98.0 Pulse 69 70 71 Resp 18 16 16 16 B/P (MAP) 136/69 (91) 109/55 (73) 122/69 (86) Pulse Ox 98 98 96 93 O2 Delivery Room Air Room Air Room Air Room Air 09/12/18 09/12/18 09/12/18 09/12/18 08:00 08:30 08:31 08:31 Pulse 71 71 71 B/P (MAP) 122/69 122/69 122/69 O2 Delivery Room Air 09/12/18 08:58 Pulse Ox 99 O2 Delivery Room Air Intake and Output 09/11/18 09/11/18 09/12/18 15:00 23:00 07:00 Intake Total 480 ml 540 ml Output Total 950 ml 700 ml 800 ml Balance -950 ml -220 ml -260 ml JEMAL LUDWIG MD September 12, 2018 09:14
[2018-09-12] MEDS ORDERED: ISOS30TA4 PO (09:20)
[2018-09-12] MEDS ORDERED: PRAS10TA9 PO (09:20)
--- NOTE | 2018-09-12 09:33 | PDOC ---
Provider Note Provider Note Discharge summary dictated.#[id number] JEMAL LUDWIG MD September 12, 2018 09:33
--- NOTE | 2018-09-12 10:49 | PDOC ---
CARDIO Progress Notes Date and Time Date of Service 09/12/2018 Time of Evaluation 1030 Subjective Subjective: No Chest Pain, No shortness of breath, No Palpitations Vitals Vitals Vital Signs Date Time Temp Pulse Resp B/P (MAP) Pulse Ox O2 Delivery O2 Flow Rate FiO2 09/12/18 08:58 99 Room Air 09/12/18 08:31 71 122/69 09/12/18 07:00 98.0 16 98.0 Weight Weight [ ] Input and Output Intake and Output Intake and Output 09/12/18 07:00 Intake Total 1020 ml Output Total 2450 ml Balance -1430 ml Intake Oral 1020 ml Output Urine Total 2450 ml # Voids 1 Physical Exam HEENT: Neck Supple W Full Motion Chest: Symmetric LUNGS: Clear to Auscultation Heart: S1S2, RRR (SR) Abdomen: Soft N/T Extremities: No Calf Tenderness Neurology: alert, oriented, follow commands Other Exams right wrist arteriotomy site intact. no erythema or swelling, neurovascular status to right hand intact. Assessment Assessment 1. NSTEMI: S/P PCI/JUAN LUIS to LAD. 2VD 2. Hx of NICM/stress induced CM: EF at 50-55% 3. CAD 5. HTN: controlled 6. HLP 7. Hx of fibromyalgia/anxiety 8. Tobaccoism 9. Acute on chronic diastolic CHF: compensated Recommendations 1. Secondary prevention measures. ASA/effient 2. Continue with home low dose toprol lisinopril, lipitor and add imdur 3. Smoking cessation. Still not using her CPAP, encouraged ZULMA OSBORN APRN September 12, 2018 10:48
--- NOTE | 2018-09-12 11:02 | NUR ---
Discharge Note: RAZ GARCIAS Discharge instructions and discharge home medications reviewed with Patient and a copy given. All questions have been answered and understanding verbalized.
--- NOTE | 2018-09-12 16:04 | DS ---
DATE OF DISCHARGE: 09/12/2018 ATTENDING PHYSICIAN: Dr. Ludwig. PRIMARY PHYSICIAN: Dr. Cleaning. REASON FOR ADMISSION TO THE HOSPITAL: Chest pain, non-STEMI. CONSULTATION: Dr. Trujillo. PROCEDURES DONE: 1. Echocardiogram. 2. Cardiac catheterization, placement of stent in distal LAD. HOSPITAL COURSE: The patient is a 58-year-old female with history of hypertension, hyperlipidemia. She is already on Plavix and aspirin. She had a cardiac catheterization last year, shows 60% stenosis, 2-vessel disease. Medically treated. She was having chest pain, came to the Emergency Room. Her troponin peaked up to 0.2. The patient was taken to cardiac cath and had a stent placed in distal LAD, which was 70% stenosis and the patient was feeling better. She was discharged on Effient 10 mg daily plus aspirin 81 mg daily. FINAL DIAGNOSES: 1. Non-ST elevation myocardial infarction. 2. Had a successful stent placement, drug-eluting stent, to distal left anterior descending. 3. Hypertension. 4. Hyperlipidemia. DISPOSITION: Home. DISCHARGE MEDICATIONS: See MRAD for discharge medications. LABORATORY DATA: The patient's cholesterol is 110, LDL is only 49. JEMAL LUDWIG MD DR: TIFFANY/felipe JOB#: [id number] / [id number] DAVID Saucedo
== END 2018-09-12 11:04 | disposition home or self-care (01) | DRG 246 ==
LOC: ER 01:52 → 2 NORTH 02:47
PROVIDERS: ADMIT Internal Medicine; ATTEND Internal Medicine
PROC: 027034Z Dilation of Coronary Artery, One Artery with Drug-eluting Intraluminal Device, Percutaneous Approach (ICD-10-PCS; principal; 2018-09-11)
PROC: 4A023N7 Measurement of Cardiac Sampling and Pressure, Left Heart, Percutaneous Approach (ICD-10-PCS; 2018-09-11)
PROC: B2111ZZ Fluoroscopy of Multiple Coronary Arteries using Low Osmolar Contrast (ICD-10-PCS; 2018-09-11)
PROC: 4A033BC Measurement of Arterial Pressure, Coronary, Percutaneous Approach (ICD-10-PCS; 2018-09-11)
DX: I21.4 Non-ST elevation (NSTEMI) myocardial infarction (principal); I50.33 Acute on chronic diastolic (congestive) heart failure; I42.9 Cardiomyopathy, unspecified; M79.7 Fibromyalgia; E78.00 Pure hypercholesterolemia, unspecified; I25.10 Atherosclerotic heart disease of native coronary artery without angina pectoris; E78.5 Hyperlipidemia, unspecified; F41.9 Anxiety disorder, unspecified; M19.90 Unspecified osteoarthritis, unspecified site; M48.02 Spinal stenosis, cervical region; I11.0 Hypertensive heart disease with heart failure; G47.33 Obstructive sleep apnea (adult) (pediatric); F17.210 Nicotine dependence, cigarettes, uncomplicated; I25.2 Old myocardial infarction; Z85.41 Personal history of malignant neoplasm of cervix uteri; Z90.710 Acquired absence of both cervix and uterus; Z88.8 Allergy status to other drugs, medicaments and biological substances; Z82.49 Family history of ischemic heart disease and other diseases of the circulatory system; Z79.82 Long term (current) use of aspirin; Z79.02 Long term (current) use of antithrombotics/antiplatelets; Z91.19 Patient's noncompliance with other medical treatment and regimen
CPT/HCPCS: 36415; 71046; 80053; 80061; 80307; 82553; 83690; 83735; 83880; 84484; 85025; 85610; 92928; 93005; 93306; 93458; 93571; 94640; 94760; 99152; 99153; 99406; C1713; C1725; C1769; C1887; C1892; J0583; J1644; J2250; J3010; J3490; J7613; J7626; 99285-25

== ENCOUNTER → 2019-04-14 | Outpatient (CLI) | payer OTHER ==
[2018-10-21 21:42] VITALS: BP 142/92
[~2019-04-14] MED LIST changes: +AMOX1TAB25 PO; +ATOR20TA PO; +ISOS30TA4 PO; +LEVO5TAB29 PO; +LORA10TA3 PO; +MELO15TA23 PO; +OXYC-411 PO; +PRAS10TA9 PO
[2019-04-14 13:38] LABS: CHOLESTEROL/HDL RATIO 2.9
== END | disposition home or self-care (01) ==
LOC: LAB 12:51
PROVIDERS: ATTEND Internal Medicine Cardiovascular Disease
DX: I25.10 Atherosclerotic heart disease of native coronary artery without angina pectoris (principal)
CPT/HCPCS: 36415; 80061; 83721

== ENCOUNTER → 2019-05-19 | Outpatient (CLI) | payer OTHER ==
[2018-10-21 21:42] VITALS: BP 142/92
--- NOTE | 2019-05-19 16:53 | RAD ---
DUPLEX LOWER EXTREMITY BILAT 05/19/2019 4:00 PM Clinical Information: Bilateral leg pain and swelling. Comparison: None. Technique: Multiple grayscale, color Doppler, and spectral Doppler sonographic images of the lower extremity arterial structures were obtained. Findings: Right: Triphasic waveforms identified throughout the right lower extremity with exception of monophasic waveforms in the deep femoral artery and monophasic waveform in the dorsalis pedis artery. Common femoral artery: 159 cm/s Profunda artery: 58 cm/s Superficial femoral artery, proximal: 101 cm/s Superficial femoral artery, mid: 111 cm/s Superficial femoral artery, distal: 114 cm/s Popliteal artery: 99 cm/s Posterior tibial artery: 90-97 cm/s Anterior tibial artery: 67 cm/s Peroneal artery: Not visualized Dorsalis pedis artery: 62 cm/s Left: Triphasic waveforms identified throughout the left lower extremity with exception of monophasic waveform in the deep femoral artery. Common femoral artery: 129 cm/s Profunda artery: 631 cm/s Superficial femoral artery, proximal: 61 cm/s Superficial femoral artery, mid: 7 cm/s Superficial femoral artery, distal: 7 cm/s Popliteal artery: 131 cm/s Posterior tibial artery: 112-119 cm/s Anterior tibial artery: 72 cm/s Peroneal artery: Not visualized. Dorsalis pedis artery: 63 cm/s IMPRESSION: 1. No evidence for hemodynamically significant stenosis involving the bilateral lower extremity arterial system. 2. Peroneal arteries are not well visualized bilaterally, possibly secondary to edema. 3. Monophasic waveforms within the deep femoral arteries bilaterally could reflect atherosclerotic changes. Electronically signed by: Gale Griffin MD (05/19/2019 4:50 PM) [place] [id number]
== END | disposition home or self-care (01) ==
LOC: US 16:00
PROVIDERS: ATTEND Family Medicine
DX: I73.9 Peripheral vascular disease, unspecified (principal)
CPT/HCPCS: 93925

== ENCOUNTER 2019-07-09 17:47 | Emergency (ER) | payer OTHER ==
[~2019-07-09] VITALS: Ht 162.6 cm; Wt 84.5 kg
--- NOTE | 2019-07-09 18:54 | PHYS DOC ---
Past Medical History Past Medical History: Cancer, Fibromyalgia, High Cholesterol, CA, Sinusitis, Other Additional Past Medical Histor: CERVICAL CA Past Surgical History: Hysterectomy, Other Additional Past Surgical Histo: CERVICAL CA Smoking Status: Current Every Day Smoker Alcohol Use: None Drug Use: None Adult General Chief Complaint Chief Complaint: FLU SYMPTOM HPI HPI Patient is a 59 year old female who presents secondary to flulike symptoms in cluding body aches, mild cough and intermittent chills that started earlier today. Patient: Nursing hotline and was told to come to the ER for further evaluation. She has no shortness of breath or chest pain. She has tried Tylenol prior to arrival. Multiple sick contacts with flulike symptoms but no official diagnosis of influenza. Review of Systems Review of Systems All other ROS is negative unless otherwise stated in HPI Current Medications Current Medications Current Medications Medications (Trade) Dose Ordered Sig/Blake Start Time Stop Time Status Last Admin Dose Admin Ibuprofen (Motrin) 600 mg 1X ONCE 07/09/19 19:15 07/09/19 19:16 DC 07/09/19 19:09 600 MG Allergies Allergies Allergies Coded Allergies Type Severity Reaction Last Updated Verified paroxetine Allergy Severe insomnia 11/27/15 Yes Physical Exam Physical Exam Constitutional: Well developed, well nourished, no acute distress, non-toxic appearance. [] HENT: Normocephalic, atraumatic, bilateral external ears normal, oropharynx moist, no oral exudates, nose normal. [] Eyes: PERRLA, EOMI, conjunctiva normal, no discharge. [] Neck: Normal range of motion, no tenderness, supple, no stridor. [] Cardiovascular:Heart rate regular rhythm, no murmur [] Lungs & Thorax: Bilateral breath sounds clear to auscultation [] Abdomen: Bowel sounds normal, soft, no tenderness, no masses, no pulsatile masses. [] Skin: Warm, dry, no erythema, no rash. [] Back: No tenderness, no CVA tenderness. [] Extremities: No tenderness, no cyanosis, no clubbing, ROM intact, no edema. [] Neurologic: Alert and oriented X 3, normal motor function, normal sensory function, no focal deficits noted. [] Psychologic: Affect normal, judgement normal, mood normal. [] Current Patient Data Vital Signs Vital Signs Date Time Temp Pulse Resp B/P (MAP) Pulse Ox O2 Delivery O2 Flow Rate FiO2 3/5/20 18:48 102.9 107 20 123/79 (94) 95 Room Air 102.9 Lab Values Laboratory Tests Test 07/09/19 18:52 07/09/19 19:25 Influenza Type A Antigen Negative (NEGATIVE) Influenza Type B Antigen Negative (NEGATIVE) White Blood Count 15.8 x10^3/uL (4.0-11.0) H Red Blood Count 4.17 x10^6/uL (3.50-5.40) Hemoglobin 13.6 g/dL (12.0-15.5) Hematocrit 39.6 % (36.0-47.0) Mean Corpuscular Volume 95 fL (79-100) Mean Corpuscular Hemoglobin 33 pg (25-35) Mean Corpuscular Hemoglobin Concent 34 g/dL (31-37) Red Cell Distribution Width 13.2 % (11.5-14.5) Platelet Count 185 x10^3/uL (140-400) Neutrophils (%) (Auto) 80 % (31-73) H Lymphocytes (%) (Auto) 11 % (24-48) L Monocytes (%) (Auto) 9 % (0-9) Eosinophils (%) (Auto) 0 % (0-3) Basophils (%) (Auto) 1 % (0-3) Neutrophils # (Auto) 12.7 x10^3/uL (1.8-7.7) H Lymphocytes # (Auto) 1.7 x10^3/uL (1.0-4.8) Monocytes # (Auto) 1.3 x10^3/uL (0.0-1.1) H Eosinophils # (Auto) 0.1 x10^3/uL (0.0-0.7) Basophils # (Auto) 0.1 x10^3/uL (0.0-0.2) Segmented Neutrophils % 68 % (35-66) H Band Neutrophils % 8 % (0-9) Lymphocytes % 17 % (24-48) L Monocytes % 6 % (0-10) Basophils % 1 % (0-3) Platelet Estimate Adequate (ADEQUATE) Sodium Level 138 mmol/L (136-145) Potassium Level 3.4 mmol/L (3.5-5.1) L Chloride Level 102 mmol/L (98-107) Carbon Dioxide Level 24 mmol/L (21-32) Anion Gap 12 (6-14) Blood Urea Nitrogen 13 mg/dL (7-20) Creatinine 0.7 mg/dL (0.6-1.0) Estimated GFR (Cockcroft-Gault) 103.6 Glucose Level 116 mg/dL (70-99) H Calcium Level 8.7 mg/dL (8.5-10.1) Troponin I Quantitative < 0.017 ng/mL (0.000-0.055) Laboratory Tests 07/09/19 19:25 Laboratory Tests 07/09/19 19:25 EKG EKG [] Radiology/Procedures Radiology/Procedures CHEST PA LATERAL Technique: PA and lateral views of the chest were obtained. Clinical History: Follow-up Comparison: September 10, 2018. Findings: The heart and pulmonary vasculature appear within normal limits. This is linear opacities in the lung bases. The pleural margins are clear. Impression: Basal infiltrates could be discoid atelectasis or pneumonia.[] Course & Med Decision Making Course & Med Decision Making Pertinent Labs and Imaging studies reviewed. (See chart for details) 2033: This patient's workup is complete at this time and it is significant for pneumonia. She also has leukocytosis likely secondary to her pneumonia. Renal function and electrolytes are unremarkable and her flu is negative. At this time the patient feels couple going home so I will start her on Levaquin and Zithromax and have encouraged oral hydration along with Tylenol and ibuprofen as needed for fever or chills and body aches. Patient is encouraged to return to the ER for worsening of symptoms and/or follow-up with her physician. She will receive work note that we'll leave her off of work until Saturday. Dragon Disclaimer Dragon Disclaimer This electronic medical record was generated, in whole or in part, using a voice recognition dictation system. Departure Departure Impression: Primary Impression: Community acquired bacterial pneumonia Disposition: HOME, SELF-CARE Condition: STABLE Referrals: DAVID GUALLPA (PCP) Please follow-up with your doctor if her symptoms worsen or return to the ER. Patient Instructions: Pneumonia, Adult Additional Instructions: You may use Tylenol and ibuprofen for fever, chills, body aches. Please push oral fluids. Scripts Azithromycin (ZITHROMAX) 250 Mg Tablet 250 MG PO as directed for ANTI-BIOTIC, #6 TAB 0 Refills Take 2 PO x 1 days Then take 1 PO q 24 hour for the next 4 days Prov: MILAD GAGE DO 07/09/19 Levofloxacin (LEVAQUIN) 500 Mg Tablet 1 TAB PO DAILY for 10 Days, #10 TAB 0 Refills Prov: MILAD GAGE DO 07/09/19 MILAD GAGE DO Jul 09, 2019 18:54
[2019-07-09] MEDS: IBUPROFEN 200 MG TABLET. PO ONE (19:09)
[2019-07-09 19:32] LABS: BASO # 0.1 x10^3/uL (0.0-0.2); BASO % 1 % (0-3); EOS # 0.1 x10^3/uL (0.0-0.7); EOS % 0 % (0-3); HEMATOCRIT 39.6 % (36.0-47.0); HEMOGLOBIN 13.6 g/dL (12.0-15.5); LYMPH # 1.7 x10^3/uL (1.0-4.8); LYMPH % 11 % (24-48); MEAN CORPUSCULAR HEMOGLOBIN 33 pg (25-35); MEAN CORPUSCULAR HGB CONC 34 g/dL (31-37); MEAN CORPUSCULAR VOLUME 95 fL (79-100); MONO # 1.3 x10^3/uL (0.0-1.1); MONO % 9 % (0-9); NEUT # 12.7 x10^3/uL (1.8-7.7); NEUT % 80 % (31-73); PLATELET COUNT 185 x10^3/uL (140-400); RED BLOOD COUNT 4.17 x10^6/uL (3.50-5.40); RED CELL DISTRIBUTION WIDTH 13.2 % (11.5-14.5); WHITE BLOOD COUNT 15.8 x10^3/uL (4.0-11.0)
[2019-07-09 19:40] LABS: CALCIUM 8.7 mg/dL (8.5-10.1); CREATININE 0.7 mg/dL (0.6-1.0); GFR 103.6; POTASSIUM 3.4 mmol/L (3.5-5.1)
[2019-07-09 19:41] LABS: INFLUENZA A PATIENT NEGATIVE (NEGATIVE); INFLUENZA B PATIENT NEGATIVE (NEGATIVE)
--- NOTE | 2019-07-09 19:43 | RAD ---
CHEST PA LATERAL Technique: PA and lateral views of the chest were obtained. Clinical History: Follow-up Comparison: September 10, 2018. Findings: The heart and pulmonary vasculature appear within normal limits. This is linear opacities in the lung bases. The pleural margins are clear. Impression: Basal infiltrates could be discoid atelectasis or pneumonia. Electronically signed by: Wilder Alvarez III, MD (07/09/2019 7:40 PM) [id number]
[2019-07-09 19:49] LABS: % BANDS 8 % (0-9); % BASOS 1 % (0-3); % LYMPHS 17 % (24-48); % MONOS 6 % (0-10); % SEGS 68 % (35-66); PLT ESTIMATE ADEQUATE (ADEQUATE)
[2019-07-09] MEDS ORDERED: AZIT250T PO (20:37)
[2019-07-09] MEDS ORDERED: LEVO500T59 PO (20:37)
[2019-07-09] MEDS: AZITHROMYCIN 250 MG TABLET. PO ONE (20:52)
[2019-07-09 20:53] VITALS: BP 91/62
--- NOTE | 2019-07-10 07:04 | EKG ---
[facility] [address] [place] [address] Test Date: 2019-07-09 Test Time: 19:02:34 Pat Name: RAZ GARCIAS Department: Room: Gender: F [employer] Functional Analyst: : 1960 Requested By: MILAD GAGE Order Number: [id number] Reading MD: Measurements Intervals [place] Rate: 101 P: 121 TX: 146 QRS: 47 QRSD: 84 T: -49 QT: 324 QTc: 426 Interpretive Statements SINUS TACHYCARDIA T ABNORMALITY IN ANTERIOR LEADS INFERIOR LEADS ABNORMAL ECG No previous ECG available for comparison
== END 2019-07-09 21:04 | disposition home or self-care (01) ==
LOC: ER 17:47
DX: J18.9 Pneumonia, unspecified organism (principal); E78.00 Pure hypercholesterolemia, unspecified; I25.2 Old myocardial infarction; F17.200 Nicotine dependence, unspecified, uncomplicated; Z88.8 Allergy status to other drugs, medicaments and biological substances
CPT/HCPCS: 36415; 71046; 80048; 84484; 85007; 85025; 87804; 93005; 99285-25

== ENCOUNTER → 2019-08-11 | Outpatient (CLI) | payer OTHER ==
[~2019-08-11] MED LIST changes: +AZIT250T PO; +LEVO500T59 PO
--- NOTE | 2019-08-11 10:35 | RAD ---
Chest PA and lateral: Reason for examination: Follow-up for pneumonia. Comparison is made to previous studies dated 07/09/2019 and 09/10/2018. The heart size is normal. Mediastinum is unremarkable. Lung polk show mild increase in interstitial markings at the lung bases bilaterally. No consolidated infiltrates. No acute bony abnormalities are seen. Impression: Mild interstitial type infiltrates of the lung bases bilaterally. Electronically signed by: Imelda Bourgeois MD (08/11/2019 10:33 AM) [id number]
== END | disposition home or self-care (01) ==
LOC: RAD 09:20
PROVIDERS: ATTEND Family Medicine
DX: R91.8 Other nonspecific abnormal finding of lung field (principal); J18.9 Pneumonia, unspecified organism
CPT/HCPCS: 71046

== ENCOUNTER → 2019-12-29 | Outpatient (CLI) | payer OTHER ==
[~2019-12-29] MED LIST changes: -ASPI-612 PO; +ASPI-886 PO; -OXYC-411 PO; +OXYC1TAB20 PO; -PREG50CA PO; +PREG50CA91 PO
--- NOTE | 2019-12-29 15:59 | KCIC ---
Bilateral lower extremity arterial duplex ultrasound 12/29/2019 INDICATION: Peripheral arterial disease, leg pain. History of smoking. COMPARISON STUDY: Bilateral lower extremity arterial duplex ultrasound May 19, 2019. TECHNIQUE: Ultrasound evaluation of the major arteries of the bilateral lower extremities was performed including color Doppler imaging with spectral analysis. FINDINGS: Mild diffuse atherosclerotic vascular calcification appears to be present. Right common femoral artery is grossly patent. Profunda artery is grossly patent. The major arteries of the bilateral lower extremities including the common femoral, superficial femoral, popliteal, posterior tibial, anterior tibial, peroneal, and dorsalis pedis arteries are without sonographically demonstrable stenosis. No evidence of major arterial occlusion is identified. No focal elevation in velocity suggestive of hemodynamically significant stenosis is seen. No other focal sonographic abnormality is identified. IMPRESSION: Mild diffuse atherosclerotic vascular disease without sonographic evidence of hemodynamically significant stenosis involving the major arteries of the bilateral lower extremities Electronically signed by: Flaco Ham MD (12/29/2019 3:57 PM) [id number]
== END ==
LOC: KCIC US 12:31
PROVIDERS: ATTEND Internal Medicine
DX: I70.8 Atherosclerosis of other arteries (principal); I73.9 Peripheral vascular disease, unspecified; M79.606 Pain in leg, unspecified; F17.200 Nicotine dependence, unspecified, uncomplicated
CPT/HCPCS: 93925

== ENCOUNTER → 2020-07-13 | Outpatient (CLI) | payer OTHER ==
[~2020-07-13] MED LIST changes: -ISOS30TA4 PO; +ISOS30TA68 PO; -LISI-338 PO; +LISI-517 PO
--- NOTE | 2020-07-13 13:03 | CARD ---
MR#: [id number] Date of Study: 07/13/2020 Ordering Physician: MANUEL LOYOLA, Referring Physician: MANUEL LOYOLA, Tech: Shaista Abraham, [facility] APPROVED REPORT EXAM: Two-dimensional and M-mode echocardiogram with Doppler and color Doppler. Other Information Quality : AverageHR: 69bpm INDICATION Cardiac Disease: CAD RISK FACTORS Hyperlipidemia Smoking 2D DIMENSIONS RVDd2.3 (2.9-3.5cm)Left Atrium(2D)2.5 (1.6-4.0cm) IVSd1.2 (0.7-1.1cm)Aortic Root(2D)2.5 (2.0-3.7cm) LVDd4.8 (3.9-5.9cm)LVOT Diameter1.9 (1.8-2.4cm) PWd1.1 (0.7-1.1cm)LVDs2.9 (2.5-4.0cm) FS (%) 39.5 %SV74.3 ml Aortic Valve AoV Peak Elver.129.8cm/sAoV VTI26.2cm AO Peak GR.6.7mmHgLVOT Peak Elver.131.7cm/s LVOT VTI 25.46cmAO Mean GR.3mmHg CASSIE (VMAX)2.36tk2JPK (VTI)2.80cm2 Mitral Valve MV E Bfueytdf83.8cm/sMV DECEL PQCB295us MV A Oixrjjcn01.2cm/sMV OED59ou E/A Ratio1.0MVA (PHT)3.96cm2 TDI E/Lateral E'7.1E/Medial E'11.7 Pulmonary Valve PV Peak Gifekyoh85.2cm/sPV Peak Grad.3mmHg Tricuspid Valve TR P. Sfvlvacx447ar/sRAP PYBIBABV4afAr TR Peak Gr.41acCjPHWL65okDh Pulmonary Vein S1 Reeiqppy52.6cm/sD2 Ppipbscf40.5cm/s PVa lzqpbebo446oczf LEFT VENTRICLE The left ventricle is normal size. There is normal left ventricular wall thickness. The left ventricu lar systolic function is normal and the ejection fraction is within normal range. The Ejection Fracti on is 50-55%. There is normal LV segmental wall motion. Transmitral Doppler flow pattern is Grade I-a bnormal relaxation pattern. RIGHT VENTRICLE The right ventricle is normal size. There is normal right ventricular wall thickness. The right ventr icular systolic function is normal. ATRIA The left atrium size is normal. The right atrium size is normal. The interatrial septum is intact wit h no evidence for an atrial septal defect or patent foramen ovale as noted on 2-D or Doppler imaging. AORTIC VALVE The aortic valve is thickened but opens well. Doppler and Color Flow revealed trace aortic regurgitat ion. There is no significant aortic valvular stenosis. Calculated aortic valve area is 2.72 cm2 with maximum pressure gradient of 8 mmHg and mean pressure gradient of 4 mmHg. MITRAL VALVE The mitral valve is normal in structure and function. There is no evidence of mitral valve prolapse. There is no mitral valve stenosis. Doppler and Color-flow revealed trace mitral regurgitation. TRICUSPID VALVE The tricuspid valve is normal in structure and function. Doppler and Color Flow revealed trace tricus pid regurgitation with an estimated PAP of 27 mmHg. There is no tricuspid valve stenosis. PULMONIC VALVE The pulmonic valve is not well visualized. Doppler and Color Flow revealed trace pulmonic valvular re gurgitation. GREAT VESSELS The aortic root is normal in size. The ascending aorta is normal in size. The IVC is normal in size a nd collapses >50% with inspiration. PERICARDIAL EFFUSION There is no evidence of significant pericardial effusion. Critical Notification Critical Value: No <Conclusion> The left ventricle is normal size. The left ventricular systolic function is normal and the ejection fraction is within normal range. The Ejection Fraction is 50-55%. Doppler and Color Flow revealed trace aortic regurgitation. There is no significant aortic valvular stenosis. Doppler and Color-flow revealed trace mitral regurgitation. Doppler and Color Flow revealed trace tricuspid regurgitation with an estimated PAP of 27 mmHg. Signed by : Connor Gant MD Electronically Approved : 07/13/2020 13:03:21
== END ==
LOC: ECHO 10:58
PROVIDERS: ATTEND Internal Medicine Cardiovascular Disease
DX: I25.10 Atherosclerotic heart disease of native coronary artery without angina pectoris (principal)
CPT/HCPCS: 93306

== ENCOUNTER 2020-11-17 18:25 | Emergency (ER) | payer OTHER ==
[~2020-11-17] VITALS: Ht 162.6 cm; Wt 79.9 kg
--- NOTE | 2020-11-17 20:54 | PHYS DOC ---
Past Medical History Past Medical History: CAD, Cancer, Fibromyalgia, High Cholesterol, Hypert ension, RI, Sinusitis, Other Additional Past Medical Histor: CERVICAL CA,SLEEP APNEA Past Surgical History: Angioplasty, Hysterectomy, Other Additional Past Surgical Histo: CERVICAL CA,CARDIAC STENTS Smoking Status: Current Every Day Smoker Alcohol Use: None Drug Use: None General Adult EDM: Chief Complaint: Congestion HPI: HPI: Patient is a 60-year-old female with a history of hypertension, RI, high cholesterol, who presents to the ED today complaining of chest congestion as well as nasal congestion, symptoms of been going on for 10 days. Patient states that her had similar symptoms but he feels better. Patient denies any fever. Denies any chest pain or shortness of breath. Reports being vaccinated against COVID-19 Review of Systems: Review of Systems: Constitutional: Denies fever or chills. [] Eyes: Denies change in visual acuity. [] HENT: Reports nasal congestion, denies sore throat. [] Respiratory: Reports chest congestion and a slight cough, denies shortness of breath. [] Cardiovascular: Denies chest pain or edema. [] GI: Denies abdominal pain, nausea, vomiting, bloody stools or diarrhea. [] : Denies dysuria. [] Musculoskeletal: Denies back pain or joint pain. [] Integument: Denies rash. [] Neurologic: Denies headache, focal weakness or sensory changes. [] Psychiatric: Denies depression or anxiety. [] Heart Score: C/O Chest Pain: N/A Risk Factors: Risk Factors: DM, Current or recent (<one month) smoker, HTN, HLP, family history of CAD, obesity. Risk Scores: Score 0 - 3: 2.5% MACE over next 6 weeks - Discharge Home Score 4 - 6: 20.3% MACE over next 6 weeks - Admit for Clinical Observation Score 7 - 10: 72.7% MACE over next 6 weeks - Early Invasive Strategies Allergies: Allergies: Allergies Coded Allergies Type Severity Reaction Last Updated Verified paroxetine Allergy Severe insomnia 11/27/15 Yes Physical Exam: PE: Constitutional: Well developed, well nourished, no acute distress, non-toxic appearance. [] HENT: Normocephalic, atraumatic, bilateral external ears normal, oropharynx moist, no oral exudates, Patient sounds congested nasally, mild maxillary sinus tenderness on exam. Eyes: PERRLA, EOMI, conjunctiva normal, no discharge. [] Neck: Normal range of motion, no tenderness, supple, no stridor. [] Cardiovascular:Heart rate regular rhythm, no murmur [] Lungs & Thorax: Bilateral breath sounds clear to auscultation [] Abdomen: Bowel sounds normal, soft, no tenderness, no masses, no pulsatile masses. [] Skin: Warm, dry, no erythema, no rash. [] Back: No tenderness, no CVA tenderness. [] Extremities: No tenderness, no cyanosis, no clubbing, ROM intact, no edema. [] Neurologic: Alert and oriented X 3, normal motor function, normal sensory function, no focal deficits noted. [] Psychologic: Affect normal, judgement normal, mood normal. [] EKG: EKG: [] Radiology/Procedures: Radiology/Procedures: [] Course & Med Decision Making: Course & Med Decision Making Pertinent Labs and Imaging studies reviewed. (See chart for details) This is a 60-year-old female patient with acute sinusitis with a cough. Discharged on Augmentin. Follow-up with PCP in 1 to 2 weeks instructed to return to the ED at any point symptoms worsen Dragon Disclaimer: Dragon Disclaimer: This electronic medical record was generated, in whole or in part, using a voice recognition dictation system. Departure Departure Impression: Primary Impression: Acute sinusitis Qualified Codes: J01.00 - Acute maxillary sinusitis, unspecified Additional Impression: Cough Disposition: HOME / SELF CARE / HOMELESS Condition: STABLE Referrals: JEMAL LUDWIG MD (PCP) follow up in 1-2 weeks Patient Instructions: Sinusitis Additional Instructions: You have a sinus infection. Take the prescribed antibiotics until completed. Use the nasal spray as ordered. Follow-up with your doctor in 1 to 2 weeks Scripts Fluticasone Propionate (Flonase Allergy Relief) 9.9 Ml [place].susp 2 SPRAYS NS DAILY, #1 ML Prov: JEFFREY RANGEL APRN 11/17/20 Amoxicillin/Potassium Clav (AUGMENTIN 875-125 TABLET) 1 Each Tablet 1 TAB PO BID for 10 Days, #20 TAB 0 Refills Prov: JEFFREY RANGEL APRN 11/17/20 JEFFREY RANGEL APRN Nov 17, 2020 20:54
[2020-11-17] MEDS ORDERED: AMOX1TAB61 PO (21:01)
[2020-11-17] MEDS ORDERED: FLUT9.9S NS (21:01)
[2020-11-17 21:13] VITALS: BP 127/79
[2020-11-17] MEDS ORDERED: AMOXICILLIN/K CLAV 875/125MG TABLET. PO ONE (21:30)
== END 2020-11-17 21:55 | disposition home or self-care (01) ==
LOC: ER 18:25
DX: J01.00 Acute maxillary sinusitis, unspecified (principal); I10 Essential (primary) hypertension; E78.00 Pure hypercholesterolemia, unspecified; I25.10 Atherosclerotic heart disease of native coronary artery without angina pectoris; I25.2 Old myocardial infarction; F17.200 Nicotine dependence, unspecified, uncomplicated; Z95.5 Presence of coronary angioplasty implant and graft; Z88.8 Allergy status to other drugs, medicaments and biological substances
CPT/HCPCS: 99283

== ENCOUNTER 2021-03-13 07:59 | Day surgery (SDC) | payer OTHER ==
[~2021-03-13] VITALS: Ht 162.6 cm; Wt 81.0 kg
[~2021-03-13 07:59] MED LIST changes: +AMOX1TAB61 PO; +CYCL10TA19 PO; -CYCL10TA2 PO; -DULO60CA6 PO; +DULO60CA7 PO; +FLUT9.9S NS; +HYDROmorphone 2 MG/ML VIAL IVP PRN; +IV RINGERS,LACTATED 1000ML 1,000 ML IV SCH; -LISI-517 PO; +LISI5TAB15 PO; +PROCHLORPERAZINE 10 MG/2 ML VIAL. IVP PRN; +fentaNYL PF VIAL 100 MCG/2 ML VIAL IVP PRN
[2021-03-13 08:29] VITALS: BP 144/81
[2021-03-13] MEDS ORDERED: ISOS30TA68 PO (08:48)
[2021-03-13] MEDS ORDERED: MOME13HF2 IH (08:49)
[2021-03-13] MEDS ORDERED: MULT-496 PO (08:49)
[2021-03-13] MEDS ORDERED: ASPI-886 PO (08:50)
[2021-03-13] MEDS ORDERED: DULO60CA7 PO (08:50)
[2021-03-13] MEDS ORDERED: PREG100C PO (08:51)
[2021-03-13] MEDS ORDERED: HYDR12.575 PO (08:52)
[2021-03-13] MEDS ORDERED: METO25TA2 PO (08:52)
[2021-03-13] MEDS ORDERED: LIDOCAINE 2% PF 5 ML VIAL. ONE (08:53)
[2021-03-13] MEDS ORDERED: PROPOFOL 50 ML IV ONE (08:53)
[2021-03-13] MEDS ORDERED: VITA1TAB31 PO (08:53)
[2021-03-13] MEDS ORDERED: LORA10TA3 PO (08:53)
[2021-03-13] MEDS ORDERED: OXYC1TAB22 PO (08:54)
[2021-03-13] MEDS ORDERED: CYCL10TA19 PO (08:55)
[2021-03-13] MEDS ORDERED: ATOR20TA58 PO (08:56)
[2021-03-13] MEDS ORDERED: OXYC5CAP PO (09:31)
[2021-03-13] MEDS ORDERED: BUPIVACAINE MPF 0.25% 30 ML VIAL. ONE (09:31)
--- NOTE | 2021-03-13 10:19 | PDOC4 ---
OPERATIVE NOTE Date: Date: Mar 13, 2021 Pre-Op Diagnosis: Carpal tunnel syndrome right cubital tunnel syndrome right Post-Op Diagnosis: Same Procedure Performed: Carpal tunnel release followed by ulnar nerve release and ulnar nerve transposition right Surgeon: Felicita Anesthesia Type: General Blood Loss: 5 cc Specimans Obtained: None Findings: See dictation Complications: None FREDRICK MEDINA Jr. DO Mar 13, 2021 10:19
--- NOTE | 2021-03-13 10:21 | DISCH ---
DISCHARGE INSTRUCTIONS Condition on Discharge Condition on Discharge: Stable Activity After Discharge Activity Instructions for Disc: Avoid exertion, Other, see below Bathing Instructions: Shower-keep dressing dry Lifting Instructions after Dis: Do not lift >10 pounds, Add. restrict see below Driving Instructions after Dis: Do not drive today, Other, see below Weight Bearing Status after Di: Other, see below Diet after Discharge Diet after Discharge: Cardiac, No Added Salt Diet Texture: Regular Liquid Texture: Thin Liquid Wound Incision Care Wound/Incision Care: Ice to area for comfort Other wound/incision instructi: Maintain splint Checks after Discharge Checks after discharge: Check blood press - daily, Check blood sugar, ac/hs, Check your Temp as needed Follow-Up Follow up with: 10 to [address] Medina Treatment/Equipment after DC Adaptive Equipment Issued: None FREDRICK MEDINA Jr. DO Mar 13, 2021 10:21
[2021-03-13] MEDS ORDERED: MORPHINE SULFATE 2 MG/ML INJ. ONE (10:41)
--- NOTE | 2021-03-13 10:43 | OP ---
DATE OF SURGERY: 03/13/2021 PREOPERATIVE DIAGNOSES: Carpal tunnel syndrome, right and cubital tunnel syndrome, right. POSTOPERATIVE DIAGNOSES: Carpal tunnel syndrome, right and cubital tunnel syndrome, right. PROCEDURE: Right carpal tunnel release followed by a right ulnar nerve transposition after decompression. SURGEON: Luis Mims DO VETERINARY ATTENDANT: James Pulliam. TYPE OF ANESTHESIA: General. COMPLICATIONS: None. ESTIMATED BLOOD LOSS: 5 mL. Standard dictation for circulation assistant. DESCRIPTION OF PROCEDURE: The patient was taken to the operative suite, given a general anesthetic. Right upper extremity was then prepped and draped in a sterile fashion. Incision was made directly over the area of the transverse carpal ligament in line with the radial border of the fourth digit. This was carefully taken down to identify the palmar fascia. This was incised all the way down to the transverse carpal ligament which was identified. This was then subsequently released. The nerve was noted to be intact and stable. This was then thoroughly irrigated and then the wound was then reapproximated in an interrupted fashion using 3-0 nylon and second incision was made through skin and subcutaneous tissues directly along the area of the path of the ulnar nerve. This was carefully taken through subcutaneous tissues and dissected down. The neurovascular structures were identified. The superficial vessels were coagulated using Bovie knife as well as 1 suture tying off one of the larger vessels. Following this, this continued down to identify the ulnar nerve just posterior to the medial epicondyle. This was then fully released both distally and proximally in order to be able to mobilize this and it was noted to be decompressed. A fascial slip was taken with its original attachment to the medial epicondyle remaining intact. This was a large flap which was taken from this region. After the ulnar nerve was easily transposed, this flap of tissue was holding this into anteriorly transposed position. It was sewed with a 2-0 nylon into the subcutaneous tissues of the anterior flap. This was reinforced with 3 separate sutures and then range of motion of the elbow revealed this to be placed in the anteriorly transposed position and this was stable. Therefore, superficial bleeding was coagulated. Superficial tissues and skin was reapproximated. Local was placed within both carpal tunnel and cubital tunnel sites. Sterile dressing was applied followed by an ulnar nerve splint. The patient was then taken from the operative bed to the postoperative bed, taken to the PACU in stable condition. EWJ/GAU DR: Eliana TID: [id number]
[2021-03-13] MEDS: MORPHINE SULFATE 2 MG/ML INJ. IVP PRN ×2 (10:55→11:18)
[2021-03-13] MEDS ORDERED: oxyCODONE/APAP 10/325 1 TAB TABLET PO ONE (11:00)
[2021-03-13] MEDS ORDERED: fentaNYL PF VIAL 100 MCG/2 ML VIAL ONE (11:20)
[2021-03-13 11:45] VITALS: BP 165/77
== END 2021-03-13 12:30 | disposition home or self-care (01) ==
LOC: SURG 07:59
PROVIDERS: ATTEND Orthopaedic Surgery
DX: G56.01 Carpal tunnel syndrome, right upper limb (principal); G56.21 Lesion of ulnar nerve, right upper limb; I25.10 Atherosclerotic heart disease of native coronary artery without angina pectoris; I10 Essential (primary) hypertension; E78.00 Pure hypercholesterolemia, unspecified; E11.9 Type 2 diabetes mellitus without complications; E66.9 Obesity, unspecified; G47.30 Sleep apnea, unspecified; M19.90 Unspecified osteoarthritis, unspecified site; F17.210 Nicotine dependence, cigarettes, uncomplicated; Z79.82 Long term (current) use of aspirin; Z79.84 Long term (current) use of oral hypoglycemic drugs; Z79.899 Other long term (current) drug therapy; Z90.710 Acquired absence of both cervix and uterus; Z98.890 Other specified postprocedural states; Z82.49 Family history of ischemic heart disease and other diseases of the circulatory system; Z88.8 Allergy status to other drugs, medicaments and biological substances
CPT/HCPCS: 64718; 64721; A4930; J0690; J2270; J2704; J3010; J3490; A4657; A6452